=== PATIENT | male | born 1930 | race Two or more races ===

== ENCOUNTER 2016-07-26 15:24 | Outpatient (CLI) | payer MEDICARE, OTHER ==
[~2016-07-26 15:24] MED LIST: ALBU4TAB6 PO; ALBU8.5H2 IH; AMLO1CAP10 PO; AMOX-430 PO; CLON0.5T4 PO; DUTA0.5C15 PO; FLEC100T2 PO; FLUT12AE3 IH; FURO40TA5 PO; GABA-534 PO; MECL-102 PO; MONT10TA22 PO; PRED10TA PO; PRED20TA GT; PRED50TA PO; RIVA10TA PO; TAMS0.4C34 PO; TIOT18CA3 IH; TRAM50TA2 PO; VALS80TA2 PO
== END 2016-07-26 23:59 | disposition home or self-care (01) ==
LOC: CARD 15:24
PROVIDERS: ATTEND Internal Medicine Interventional Cardiology
DX: I82.402 Acute embolism and thrombosis of unspecified deep veins of left lower extremity (principal)
CPT/HCPCS: 93971-TC

== ENCOUNTER 2016-09-15 13:22 | Inpatient (IN) | payer MEDICARE, OTHER ==
[~2016-09-15] VITALS: Ht 177.8 cm; Wt 90.7 kg
[2016-09-15] MEDS ORDERED: IV NS 0.9% 0 ML ONE (13:54)
[2016-09-15] MEDS ORDERED: IV SET PRIMARY PUMP SET 1 EA INFUS.SET MC ONE (13:54)
[2016-09-15 13:56] LABS: BASOPHILS # (AUTO) 0.3 /CMM (0.0-0.2); BASOPHILS % (AUTO) 1.9 % (0.0-2.0); DIFF TOTAL % 100 %; EOSINOPHILS % (AUTO) 0.3 % (0.0-6.0); HEMATOCRIT 38 % (39-51); HEMOGLOBIN 12.6 g/dL (13.5-17.5); LYMPHOCYTES # (AUTO) 0.6 /CMM (0.8-4.8); LYMPHOCYTES % (AUTO) 4.1 % (20.0-44.0); MEAN CORPUSCULAR HEMOGLOBIN 29 PG (26.0-33.0); MEAN CORPUSCULAR HGB CONC 33 g/dl (31.0-36.0); MEAN CORPUSCULAR VOLUME 88 fL (80-96); MONOCYTES # (AUTO) 0.7 /CMM (0.1-1.30); MONOCYTES % (AUTO) 4.8 % (2.0-12.0); NEUTROPHILS # (AUTO) 12.6 /CMM (1.8-8.9); NEUTROPHILS % (AUTO) 88.9 % (43.0-81.0); PLATELET COUNT (AUTO) 345 /CMM (150-450); RED BLOOD CELL COUNT(AUTO) 4.32 MIL/uL (4.5-6.0); WHITE BLOOD COUNT (AUTO) 14.2 K/uL (4.3-11.0)
[2016-09-15 14:07] LABS: ANION GAP 10 (5-14); CALCIUM, SERUM 8.4 mg/dL (8.5-10.1); CARBON DIOXIDE 30 mmol/L (21-32); CHLORIDE 104 mmol/L (98-107); CREATININE 1.4 mg/dL (0.6-1.3); GLUCOSE 130 mg/dL (74-106); POTASSIUM 4.7 mmol/L (3.5-5.1); SODIUM SERUM 139 mmol/L (136-145); UREA NITROGEN, BLOOD 47 mg/dL (7-18)
[2016-09-15 14:10] LABS: INR 0.94 (0.87-1.13); PROTHROMBIN TIME 9.9 SECS (9.5-12.7)
[2016-09-15 14:27] LABS: TROPONIN I < 0.017 ng/mL (0.00-0.056)
[2016-09-15 14:29] LABS: ALANINE AMINOTRANSFERASE 26 U/L (12-78); ALBUMIN 3.5 g/dL (3.4-5.0); ASPARTATE AMINOTRANSFERASE 17 U/L (15-37); BILIRUBIN,DIRECT 0.1 mg/dL (0.0-0.2); BILIRUBIN,TOTAL 0.4 mg/dL (0.2-1.0); INDIRECT BILIRUBIN 0.3 mg/dL (0.0-1.1); TOTAL PROTEIN, SERUM 6.3 g/dL (6.4-8.2)
[2016-09-15] MEDS ORDERED: IPRATROPIUM NEB FS 0.5 MG/2.5 ML AMPUL.NEB NEB ONE (14:30)
[2016-09-15] MEDS ORDERED: ALBUTEROL FS 2.5 MG/0.5 ML VIAL.NEB NEB ONE (14:30)
[2016-09-15] MEDS ORDERED: IPRATROPIUM NEB FS 0.5 MG/2.5 ML AMPUL.NEB ONE (14:35)
[2016-09-15] MEDS ORDERED: ALBUTEROL FS 2.5 MG/3 ML VIAL.NEB ONE (14:35)
[2016-09-15] MEDS ORDERED: ALBUTEROL FS 2.5 MG/0.5 ML VIAL.NEB NEB PRN (16:00)
[2016-09-15] MEDS ORDERED: MAGNESIUM HYDROXIDE 30 ML UDC PO PRN (16:00)
[2016-09-15] MEDS ORDERED: IPRATROPIUM NEB FS 0.5 MG/2.5 ML AMPUL.NEB NEB PRN (16:00)
[2016-09-15] MEDS ORDERED: methylPREDNISolone SOD SUCC 125 MG/2ML VIAL IV ONE (16:00)
[2016-09-15] MEDS ORDERED: ACETAMINOPHEN 325 MG TABLET PO PRN (16:00)
[2016-09-15] MEDS ORDERED: MAG HYDROX/AL HYDROX/SIMETH 30 ML UDC PO PRN (16:00)
[2016-09-15] MEDS ORDERED: Z GUARD REMEDY 2 OZ OINT TP PRN (16:00)
[2016-09-15] MEDS ORDERED: HYDROCODONE/APAP 5/325MG 1 EACH TABLET PO PRN (16:00)
[2016-09-15] MEDS ORDERED: ONDANSETRON HCL/PF 4 MG/2 ML VIAL IVP PRN (16:00)
[2016-09-15] MEDS ORDERED: ZOLPIDEM TARTRATE 5 MG TABLET PO PRN (16:00)
[2016-09-15 16:25] LABS: ADD UA MICROSCOPIC NO; KETONES,URINE NEGATIVE (NEGATIVE); LEUKOCYTE ESTERASE ,URINE NEGATIVE (NEGATIVE); PH,URINE 5.5 (5.0-8.0)
[2016-09-15 16:30] VITALS: BP 122/69
[2016-09-15] MEDS ORDERED: ALBU18HF2 IH (16:39)
[2016-09-15] MEDS ORDERED: CYCL30DR EACHEYE (16:39)
[2016-09-15] MEDS ORDERED: POTA20TA83 PO (16:39)
[2016-09-15] MEDS ORDERED: PRED10TA PO (16:39)
[2016-09-15] MEDS ORDERED: Medication Not On Formulary EA (Cyclosporine (Restasis) 1 DROP) EACHEYE SCH (17:00)
[2016-09-15] MEDS ORDERED: clonazePAM 0.5 MG TABLET PO PRN (17:00)
[2016-09-15] MEDS ORDERED: ENOXAPARIN SODIUM 40 MG/0.4 ML DISP.SYRIN SQ SCH (17:00)
[2016-09-15] MEDS ORDERED: TRAMADOL HCL 50 MG TABLET PO PRN (17:00)
[2016-09-15] MEDS ORDERED: MECLIZINE HCL 25 MG TABLET PO PRN (17:00)
[2016-09-15] MEDS: FLECAINIDE ACETATE (100 MG) 100 MG TABLET PO SCH (17:56)
[2016-09-15] MEDS: POTASSIUM CHLORIDE 20 MEQ TAB.PRT.SR PO SCH (17:58)
[2016-09-15] MEDS: RIVAROXABAN 10 MG TABLET PO SCH (17:58)
[2016-09-15 19:00] VITALS: BP 134/66
[2016-09-15] MEDS ORDERED: ALBUTEROL FS 2.5 MG/3 ML VIAL.NEB NEB PRN (19:30)
[2016-09-15] MEDS: IPRATROPIUM NEB FS 0.5 MG/2.5 ML AMPUL.NEB NEB SCH (19:53)
[2016-09-15] MEDS: ALBUTEROL FS 2.5 MG/3 ML VIAL.NEB NEB SCH (19:53)
[2016-09-15] MEDS: AMLODIPINE BESYLATE 10 MG TABLET PO SCH (21:24)
[2016-09-15] MEDS: DUTASTERIDE (0.5 MG) 0.5 MG CAPSULE PO SCH (21:24)
[2016-09-15] MEDS: MONTELUKAST SODIUM (10MG) 10 MG TABLET PO SCH (21:24)
[2016-09-15] MEDS: TAMSULOSIN 0.4 MG CAP.SR.24H PO SCH (21:24)
[2016-09-15] MEDS: GABAPENTIN 300 MG CAPSULE PO SCH (21:24)
[2016-09-16] VITALS: BP 125/59
[2016-09-16] MEDS: IPRATROPIUM NEB FS 0.5 MG/2.5 ML AMPUL.NEB NEB SCH ×4 (01:22→19:55)
[2016-09-16] MEDS: ALBUTEROL FS 2.5 MG/3 ML VIAL.NEB NEB SCH ×4 (01:23→19:55)
[2016-09-16 04:00] VITALS: BP 136/75
[2016-09-16 07:49] LABS: BASOPHILS % (AUTO) 0.1 % (0.0-2.0); DIFF TOTAL % 100 %; HEMATOCRIT 42 % (39-51); HEMOGLOBIN 13.2 g/dL (13.5-17.5); LYMPHOCYTES # (AUTO) 0.6 /CMM (0.8-4.8); MEAN CORPUSCULAR HEMOGLOBIN 28 PG (26.0-33.0); MEAN CORPUSCULAR HGB CONC 32 g/dl (31.0-36.0); MEAN CORPUSCULAR VOLUME 90 fL (80-96); MONOCYTES # (AUTO) 0.3 /CMM (0.1-1.30); MONOCYTES % (AUTO) 2.5 % (2.0-12.0); NEUTROPHILS # (AUTO) 11.7 /CMM (1.8-8.9); NEUTROPHILS % (AUTO) 92.4 % (43.0-81.0); PLATELET COUNT (AUTO) 366 /CMM (150-450); RED BLOOD CELL COUNT(AUTO) 4.65 MIL/uL (4.5-6.0); WHITE BLOOD COUNT (AUTO) 12.7 K/uL (4.3-11.0)
[2016-09-16 08:00] VITALS: BP_SYST 135; BP_DIAS 60; BP_DIAS 80
[2016-09-16 08:08] LABS: ALBUMIN 3.5 g/dL (3.4-5.0); BILIRUBIN,TOTAL 0.3 mg/dL (0.2-1.0); CALCIUM, SERUM 8.8 mg/dL (8.5-10.1); CREATININE 1.3 mg/dL (0.6-1.3); PHOSPHORUS 4.1 mg/dL (2.5-4.9); POTASSIUM 4.9 mmol/L (3.5-5.1)
[2016-09-16] MEDS: FUROSEMIDE 40 MG TABLET PO SCH (08:14)
[2016-09-16] MEDS: POTASSIUM CHLORIDE 20 MEQ TAB.PRT.SR PO SCH ×2 (08:15→17:06)
[2016-09-16] MEDS: FLECAINIDE ACETATE (100 MG) 100 MG TABLET PO SCH ×2 (08:15→17:06)
[2016-09-16] MEDS: VALSARTAN 80 MG TABLET PO SCH (08:16)
[2016-09-16] MEDS: PANTOPRAZOLE 40 MG TABLET.DR PO SCH (08:17)
[2016-09-16] MEDS: methylPREDNISolone SOD SUCC 125 MG/2ML VIAL IV SCH ×2 (08:22→17:07)
[2016-09-16] MEDS: FLUTICASONE/SALMETEROL DISKUS IH SCH ×2 (08:29→17:06)
[2016-09-16] MEDS ORDERED: TIOTROPIUM BROMIDE 6 CAP/BOX CAP.W.DEV IH SCH (09:00)
[2016-09-16 12:00] VITALS: BP 136/53
[2016-09-16] MEDS ORDERED: FUROSEMIDE 40 MG/4 ML VIAL IV ONE (12:30)
[2016-09-16] MEDS: GUAIFENESIN 300 MG/15 ML UDC PO PRN ×2 (12:53→20:46)
[2016-09-16 16:00] VITALS: BP 128/57
[2016-09-16] MEDS: RIVAROXABAN 10 MG TABLET PO SCH (17:07)
[2016-09-16 20:00] VITALS: BP 135/63
[2016-09-16] MEDS: BENAZEPRIL HCL 20 MG TABLET PO SCH (21:48)
[2016-09-16] MEDS: DUTASTERIDE (0.5 MG) 0.5 MG CAPSULE PO SCH (21:48)
[2016-09-16] MEDS: AMLODIPINE BESYLATE 10 MG TABLET PO SCH (21:49)
[2016-09-16] MEDS: TAMSULOSIN 0.4 MG CAP.SR.24H PO SCH (21:49)
[2016-09-16] MEDS: MONTELUKAST SODIUM (10MG) 10 MG TABLET PO SCH (21:49)
[2016-09-16] MEDS: GABAPENTIN 300 MG CAPSULE PO SCH (21:49)
[2016-09-17] VITALS: BP 142/68
[2016-09-17] MEDS: ALBUTEROL FS 2.5 MG/3 ML VIAL.NEB NEB SCH ×4 (01:04→19:42)
[2016-09-17] MEDS: IPRATROPIUM NEB FS 0.5 MG/2.5 ML AMPUL.NEB NEB SCH ×4 (01:04→19:42)
[2016-09-17 04:00] VITALS: BP 140/68
[2016-09-17 06:48] VITALS: BP 125/53
[2016-09-17 07:37] LABS: CREATININE 1.5 mg/dL (0.6-1.3); PHOSPHORUS 4.5 mg/dL (2.5-4.9); POTASSIUM 4.2 mmol/L (3.5-5.1)
[2016-09-17 07:55] LABS: DIFF TOTAL % 100 %; HEMATOCRIT 46 % (39-51); HEMOGLOBIN 14.5 g/dL (13.5-17.5); LYMPHOCYTES # (AUTO) 0.7 /CMM (0.8-4.8); LYMPHOCYTES % (AUTO) 3.5 % (20.0-44.0); MEAN CORPUSCULAR HEMOGLOBIN 28 PG (26.0-33.0); MEAN CORPUSCULAR HGB CONC 32 g/dl (31.0-36.0); MEAN CORPUSCULAR VOLUME 90 fL (80-96); MONOCYTES # (AUTO) 0.5 /CMM (0.1-1.30); MONOCYTES % (AUTO) 2.3 % (2.0-12.0); NEUTROPHILS # (AUTO) 19.5 /CMM (1.8-8.9); NEUTROPHILS % (AUTO) 94.2 % (43.0-81.0); PLATELET COUNT (AUTO) 378 /CMM (150-450); WHITE BLOOD COUNT (AUTO) 20.7 K/uL (4.3-11.0)
[2016-09-17] MEDS: methylPREDNISolone SOD SUCC 125 MG/2ML VIAL IV SCH ×2 (09:08→16:04)
[2016-09-17] MEDS: POTASSIUM CHLORIDE 20 MEQ TAB.PRT.SR PO SCH ×2 (09:08→16:04)
[2016-09-17] MEDS: FLECAINIDE ACETATE (100 MG) 100 MG TABLET PO SCH ×2 (09:09→16:06)
[2016-09-17] MEDS: FUROSEMIDE 40 MG TABLET PO SCH (09:09)
[2016-09-17] MEDS: VALSARTAN 80 MG TABLET PO SCH (09:09)
[2016-09-17] MEDS: PANTOPRAZOLE 40 MG TABLET.DR PO SCH (09:10)
[2016-09-17] MEDS: GUAIFENESIN 300 MG/15 ML UDC PO PRN ×2 (09:15→22:50)
[2016-09-17] MEDS: FLUTICASONE/SALMETEROL DISKUS IH SCH ×2 (09:15→16:04)
[2016-09-17] MEDS ORDERED: LEVOFLOXACIN 750 MG /D5W 150ML 750 MG in PREMIX 1 EA IV SCH ×2 (11:00→12:00)
[2016-09-17] MEDS ORDERED: ALPRAZOLAM 0.25 MG TABLET PO PRN (11:00)
[2016-09-17] MEDS ORDERED: IV SET PRIMARY PUMP SET 1 EA INFUS.SET MC ONE (12:10)
[2016-09-17] MEDS: P-EPHED SUL/LORATADINE (24H) 1 TAB.SR.24H PO SCH (12:15)
[2016-09-17 12:30] LABS: ABG BASE EXCESS 4.2 mmol/L; ABG HCO3 29.5 mmol/L; ABG PCO2 46.5 mmHg (35.0-45.0); ABG PO2 55.2 mmHg (75.0-100.0); ABG TOTAL HEMOGLOBIN 14.1 G/dL (13.5-18.0); ALLEN TEST Pass; AaDO2 38.8 mmHg; O2Hb 85.8 % (94.0-97.0)
[2016-09-17] MEDS: RIVAROXABAN 10 MG TABLET PO SCH (16:05)
[2016-09-17 16:19] VITALS: BP 136/64
[2016-09-17 20:00] VITALS: BP 130/65
[2016-09-17] MEDS: BENAZEPRIL HCL 20 MG TABLET PO SCH (21:47)
[2016-09-17] MEDS: TAMSULOSIN 0.4 MG CAP.SR.24H PO SCH (21:48)
[2016-09-17] MEDS: MONTELUKAST SODIUM (10MG) 10 MG TABLET PO SCH (21:48)
[2016-09-17] MEDS: AMLODIPINE BESYLATE 10 MG TABLET PO SCH (21:48)
[2016-09-17] MEDS: GABAPENTIN 300 MG CAPSULE PO SCH (21:48)
[2016-09-17] MEDS: DUTASTERIDE (0.5 MG) 0.5 MG CAPSULE PO SCH (21:48)
[2016-09-18] MEDS: IPRATROPIUM NEB FS 0.5 MG/2.5 ML AMPUL.NEB NEB SCH ×3 (01:48→12:59)
[2016-09-18] MEDS: ALBUTEROL FS 2.5 MG/3 ML VIAL.NEB NEB SCH ×3 (01:48→12:59)
[2016-09-18 07:40] LABS: DIFF TOTAL % 100 %; HEMATOCRIT 41 % (39-51); LYMPHOCYTES # (AUTO) 0.6 /CMM (0.8-4.8); LYMPHOCYTES % (AUTO) 4.3 % (20.0-44.0); MEAN CORPUSCULAR HEMOGLOBIN 28 PG (26.0-33.0); MEAN CORPUSCULAR HGB CONC 32 g/dl (31.0-36.0); MEAN CORPUSCULAR VOLUME 89 fL (80-96); MONOCYTES # (AUTO) 0.3 /CMM (0.1-1.30); MONOCYTES % (AUTO) 2.3 % (2.0-12.0); NEUTROPHILS # (AUTO) 12.5 /CMM (1.8-8.9); NEUTROPHILS % (AUTO) 93.4 % (43.0-81.0); PLATELET COUNT (AUTO) 371 /CMM (150-450); RED BLOOD CELL COUNT(AUTO) 4.61 MIL/uL (4.5-6.0); WHITE BLOOD COUNT (AUTO) 13.4 K/uL (4.3-11.0)
[2016-09-18 07:44] LABS: CREATININE 1.6 mg/dL (0.6-1.3)
[2016-09-18 08:00] VITALS: BP 135/65
[2016-09-18] MEDS: FLECAINIDE ACETATE (100 MG) 100 MG TABLET PO SCH (08:27)
[2016-09-18] MEDS: methylPREDNISolone SOD SUCC 125 MG/2ML VIAL IV SCH (08:27)
[2016-09-18] MEDS: PANTOPRAZOLE 40 MG TABLET.DR PO SCH (08:27)
[2016-09-18] MEDS: FUROSEMIDE 40 MG TABLET PO SCH (08:27)
[2016-09-18] MEDS: POTASSIUM CHLORIDE 20 MEQ TAB.PRT.SR PO SCH (08:27)
[2016-09-18 08:28] VITALS: BP 100/67
[2016-09-18] MEDS: VALSARTAN 80 MG TABLET PO SCH (08:28)
[2016-09-18] MEDS: FLUTICASONE/SALMETEROL DISKUS IH SCH (08:32)
[2016-09-18 08:39] LABS: PHOSPHORUS 4.3 mg/dL (2.5-4.9)
[2016-09-18] MEDS ORDERED: PRED10TA PO (10:22)
[2016-09-18] MEDS ORDERED: PRED20TA PO (10:22)
[2016-09-18] MEDS ORDERED: GUAI-755 PO (10:22)
[2016-09-18] MEDS ORDERED: PRED20TA GT (10:22)
[2016-09-18] MEDS ORDERED: PRED50TA PO (10:22)
[2016-09-18] MEDS ORDERED: AMOX-430 PO (10:25)
[2016-09-18] MEDS: P-EPHED SUL/LORATADINE (24H) 1 TAB.SR.24H PO SCH (13:45)
== END 2016-09-18 14:30 | disposition home health service (06) | DRG 189 ==
LOC: ER 13:25 → TELE 15:54 → MED 09-17 08:54
PROVIDERS: ADMIT Family Medicine; ATTEND Family Medicine
DX: J96.01 Acute respiratory failure with hypoxia (principal); I50.23 Acute on chronic systolic (congestive) heart failure; N17.0 Acute kidney failure with tubular necrosis; J15.9 Unspecified bacterial pneumonia; J44.1 Chronic obstructive pulmonary disease with (acute) exacerbation; J45.901 Unspecified asthma with (acute) exacerbation; D68.59 Other primary thrombophilia; N28.9 Disorder of kidney and ureter, unspecified; N40.0 Benign prostatic hyperplasia without lower urinary tract symptoms; E78.5 Hyperlipidemia, unspecified; I25.10 Atherosclerotic heart disease of native coronary artery without angina pectoris; I48.91 Unspecified atrial fibrillation; I11.0 Hypertensive heart disease with heart failure; K21.9 Gastro-esophageal reflux disease without esophagitis; F41.9 Anxiety disorder, unspecified; F32.9 Major depressive disorder, single episode, unspecified; Z87.891 Personal history of nicotine dependence; Z99.81 Dependence on supplemental oxygen; Z79.01 Long term (current) use of anticoagulants; D72.825 Bandemia
CPT/HCPCS: 36415; 36600; 71010-TC; 80048-TC; 80053-TC; 80076-TC; 81000-TC; 83735-TC; 83880; 84100-TC; 84484-TC; 85025-TC; 85730-TC; 87040-TC; 87070-TC; 87081-TC; 87400; 93307-TC; 94640-TC; 94799-TC; 97001-TC; A4216; A4606; J1940; J1956; J2930; J7030; Z7610

== ENCOUNTER 2016-10-12 09:42 | Inpatient (IN) | payer MEDICARE, OTHER ==
[~2016-10-12] VITALS: Ht 177.8 cm; Wt 88.5 kg
[~2016-10-12 09:42] MED LIST changes: +ALBU18HF2 IH; -ALBU8.5H2 IH; +CYCL30DR EACHEYE; +GUAI-755 PO; +PRED20TA PO
--- NOTE | 2016-10-12 10:00 | NUR ---
AAOX3, CAME TO ER C/O ABRASION TO SCALP AND L HAND S/P GLF 10 MIN BRICK HANDLER BURNING SENSATION TO R KNEE SINCE THIS MORNING. -KO. SKIN IS WARM AND DRY. RESP IS EVEN AND UNLABORED. NAD NOTED. DR JOHNSON AT BS FOR DARLINE.
--- NOTE | 2016-10-12 10:06 | NUR ---
BRICK PITCHER AT DRAWING BLOOD.
--- NOTE | 2016-10-12 10:06 | NUR ---
EKG IN PROGRESS AT BS
[2016-10-12 10:15] LABS: HEMATOCRIT 36 % (39-51); HEMOGLOBIN 11.5 g/dL (13.5-17.5); LYMPHOCYTES # (AUTO) 0.3 /CMM (0.8-4.8); LYMPHOCYTES % (AUTO) 3.3 % (20.0-44.0); MEAN CORPUSCULAR HEMOGLOBIN 28 PG (26.0-33.0); MEAN CORPUSCULAR HGB CONC 32 g/dl (31.0-36.0); MEAN CORPUSCULAR VOLUME 89 fL (80-96); MONOCYTES # (AUTO) 0.4 /CMM (0.1-1.30); MONOCYTES % (AUTO) 4.3 % (2.0-12.0); NEUTROPHILS # (AUTO) 9.2 /CMM (1.8-8.9); NEUTROPHILS % (AUTO) 92.4 % (43.0-81.0); PLATELET COUNT (AUTO) 348 /CMM (150-450); RDW COEFFICIENT OF VARIATION 16.1 (11.5-15.0); RED BLOOD CELL COUNT(AUTO) 4.07 MIL/uL (4.5-6.0); WHITE BLOOD COUNT (AUTO) 9.9 K/uL (4.3-11.0)
--- NOTE | 2016-10-12 10:21 | NUR ---
PATIENT TRANSPORTED FOR CT HEAD VIA GURNEY, PATIENT APPEARS STABLE AT THIS TIME.
[2016-10-12] MEDS ORDERED: TDAP [DIPH/PERTUSSIS/TET] 0.5 ML VIAL IM ONE ×2 (10:30→10:51)
[2016-10-12 10:31] LABS: ALANINE AMINOTRANSFERASE 28 U/L (12-78); ALBUMIN 3.1 g/dL (3.4-5.0); ALKALINE PHOSPHATASE 76 U/L (46-116); ASPARTATE AMINOTRANSFERASE 16 U/L (15-37); BILIRUBIN,DIRECT 0.1 mg/dL (0.0-0.2); BILIRUBIN,TOTAL 0.3 mg/dL (0.2-1.0); CALCIUM, SERUM 8.4 mg/dL (8.5-10.1); CARBON DIOXIDE 28 mmol/L (21-32); CHLORIDE 105 mmol/L (98-107); CREATININE 1.7 mg/dL (0.6-1.3); GLUCOSE 209 mg/dL (74-106); POTASSIUM 5.7 mmol/L (3.5-5.1); SODIUM SERUM 141 mmol/L (136-145); TOTAL PROTEIN, SERUM 5.9 g/dL (6.4-8.2); UREA NITROGEN, BLOOD 29 mg/dL (7-18)
[2016-10-12 10:34] LABS: TROPONIN I < 0.017 ng/mL (0.00-0.056)
[2016-10-12 10:36] LABS: PROTHROMBIN TIME 10.7 SECS (9.5-12.7)
--- NOTE | 2016-10-12 11:37 | NUR ---
PAGED MARKETING GRAPHICS SPECIALIST PANEL CHAPIS DELACRUZ.
--- NOTE | 2016-10-12 11:59 | NUR ---
REPORT GIVEN TO ROSEY MAKI FOR YOUSUF [phone]
[2016-10-12 12:30] VITALS: BP 126/63
--- NOTE | 2016-10-12 12:30 | NUR ---
MS RN NOTES ADMITTED THIS PATIENT FROM ER VIA [facility], DX: RT KNEE FRACTURE, DR. CHAPIS DELACRUZ, AAO X 3 TONGAN SPEAKING, ON RA, NOT IN ANY DISTRESS,C/O 2/10 SHARP PAIN ON MOVEMENT, RT KNEE. PATIENT HAD GLF AT HOME. UNABLE TO AMBULATE AT THIS TIME. LFA G18 FLUSHES WELL, SITE CLEAR. UNIT ORIENTATION DONE AND USE OF CALL LIGHT. BED LOW LOCKED, SR UP X 2, PHOTOS OF SKIN ISSUES TAKEN AND PLACED IN CHART. WILL CONT TO MONITOR.
--- NOTE | 2016-10-12 13:18 | NUR ---
MS RN NOTES DR CHAPIS DELACRUZ NOTIFIED OF ADMISSION.
[2016-10-12] MEDS ORDERED: Z GUARD REMEDY 2 OZ OINT TP PRN (14:30)
[2016-10-12] MEDS ORDERED: SODIUM POLYSTYRENE SULFONATE 15 G/60 ML BOTTLE PO ONE (14:30)
[2016-10-12] MEDS ORDERED: clonazePAM 0.5 MG TABLET PO PRN (14:30)
[2016-10-12] MEDS ORDERED: MORPHINE SULFATE INJ 2 MG/ML DISP.SYRIN IV PRN (14:30)
[2016-10-12] MEDS ORDERED: ALBUTEROL SULFATE 8 GM HFA.AER.AD IH PRN (14:30)
[2016-10-12] MEDS ORDERED: ACETAMINOPHEN 325 MG TABLET PO PRN (14:30)
[2016-10-12] MEDS ORDERED: ONDANSETRON HCL/PF 4 MG/2 ML VIAL IVP PRN (14:30)
[2016-10-12] MEDS ORDERED: ALBUTEROL FS 2.5 MG/3 ML VIAL.NEB NEB PRN (15:00)
[2016-10-12 16:00] VITALS: BP 130/59
[2016-10-12 16:51] VITALS: BP 130/59
[2016-10-12] MEDS: RIVAROXABAN 10 MG TABLET PO SCH (17:01)
[2016-10-12] MEDS: FLUTICASONE/SALMETEROL DISKUS IH SCH (17:02)
[2016-10-12] MEDS: FLECAINIDE ACETATE (100 MG) 100 MG TABLET PO SCH (17:02)
[2016-10-12 18:00] VITALS: BP 130/59
--- NOTE | 2016-10-12 18:36 | NUR ---
MS RN NOTE: PATIENT RESTING IN BED, NO ACUTE DISTRESS NOTED. BREATHING EVEN AND UNLABORED, NO SOB NOTED. HL TO LFA IN PLACE. BED LOCKED AND IN LOWEST POSITION, CALL LIGHT IN REACH, ALL NEEDS MET. WILL ENDORSE TO NYLON OPERATOR NURSE TO CONTINUE WITH PLAN OF CARE.
--- NOTE | 2016-10-12 19:00 | NUR ---
MS RN OPENING NOTES RECEIVED PATIENT IN BED IN STABLE CONDITION, NO S/S OF DISTRESS, IV SITE INTACT WITH S/S OF INFILTRATION. NO S/S OF DISTRESS NO SOB, NO CHEST PAIN. NO COMPLAINS OF PAIN, SAFE FREE ENVIRONMENT PROVIDED FREE OF CLUTTERS, WILL CONTINUE TO MONITOR, ON LOW BED TO ENSURE SAFETY, CALL LIGHT WITHIN REACH.
[2016-10-12 20:00] VITALS: BP 130/54
[2016-10-12] MEDS: GABAPENTIN 300 MG CAPSULE PO SCH (21:05)
[2016-10-12] MEDS: DUTASTERIDE (0.5 MG) 0.5 MG CAPSULE PO SCH (21:05)
[2016-10-12] MEDS: TAMSULOSIN 0.4 MG CAP.SR.24H PO SCH (21:06)
[2016-10-12] MEDS: MONTELUKAST SODIUM (10MG) 10 MG TABLET PO SCH (21:08)
[2016-10-12] MEDS: IPRATROPIUM NEB FS 0.5 MG/2.5 ML AMPUL.NEB NEB SCH (21:36)
[2016-10-13] MEDS: IPRATROPIUM NEB FS 0.5 MG/2.5 ML AMPUL.NEB NEB SCH ×6 (01:30→23:53)
[2016-10-13 06:37] LABS: EOSINOPHILS # (AUTO) 0.1 /CMM (0.0-0.7); EOSINOPHILS % (AUTO) 2.2 % (0.0-6.0); HEMATOCRIT 35 % (39-51); HEMOGLOBIN 11.4 g/dL (13.5-17.5); LYMPHOCYTES # (AUTO) 0.9 /CMM (0.8-4.8); LYMPHOCYTES % (AUTO) 14.4 % (20.0-44.0); MEAN CORPUSCULAR HEMOGLOBIN 29 PG (26.0-33.0); MEAN CORPUSCULAR HGB CONC 32 g/dl (31.0-36.0); MEAN CORPUSCULAR VOLUME 89 fL (80-96); MONOCYTES # (AUTO) 0.5 /CMM (0.1-1.30); MONOCYTES % (AUTO) 8.1 % (2.0-12.0); NEUTROPHILS # (AUTO) 4.7 /CMM (1.8-8.9); NEUTROPHILS % (AUTO) 75.3 % (43.0-81.0); PLATELET COUNT (AUTO) 314 /CMM (150-450); RDW COEFFICIENT OF VARIATION 16.5 (11.5-15.0); RED BLOOD CELL COUNT(AUTO) 3.96 MIL/uL (4.5-6.0); WHITE BLOOD COUNT (AUTO) 6.2 K/uL (4.3-11.0)
--- NOTE | 2016-10-13 06:50 | NUR ---
MS RN CLOSING NOTES PATIENT COMFORTABLY IN BED ASLEEP AND EASILY AWAKEN, HEAD OF BED ELEVATED FOR BETTER LUNG EXPANSION AND GOOD CIRCULATION. DUE MEDS WAS GIVEN. ON 2LPM VIA NC 02 SAT SP02 98%. ALERT AND VERBALLY RESPONSIVE X 3 DENIES PAIN OR DISTRESS, RESPONDS APPROPRIATELY TO VERBAL STIMULI, RESPIRATIONS EVEN UNLABORED BREATH SOUNDS. VS STABLE, APICAL PULSE REGULAR; TX ORDERED, GOOD SKIN CARE PROVIDED. IV SITE INTACT WITH NO S/S OF INFILTRATION NOTED. OFFLOAD AT ALL TIMES. PATIENT IN STABLE CONDITION WITH NO SOB NO S/S OF DISTRESS NO NAUSEA AND VOMITING NO HEADACHE NO PAIN, NO COMPLAIN OF CHEST PAIN SAFETY ENVIRONMENT PROVIDED. FREE OF CLUTTERS, NEEDS ATTENDED AND ANTICIPATED, NURSING CARE RENDERED, KEPT CLEAN AND DRY AND COMFORTABLE. ALL DUE MEDS WAS GIVEN. ASSISTED REPOSITION Q2H FOR COMFORT AND SKIN MGT. CALL LIGHT IN REACH, BED LOWERED AND LOCKED, SR X2 FOR SAFETY AND WILL ENDORSE CONTINUE PLAN OF CARE TO THE NEXT SHIFT
[2016-10-13 07:02] LABS: THYROID STIMULATING HORMONE 1.315 uIU/mL (0.358-3.74)
--- NOTE | 2016-10-13 07:10 | NUR ---
MS RN NOTE: RECEIVED PATIENT WHILE RESTING IN BED, A/OX 3. PATIENT BREATHING EVEN AND UNLABORED ON 2L O2 VIA NC. NO SOB, NO DISTRESS/DISCOMFORT AT THE MOMENT. PATIENT COMFORTABLE, ALL NEEDS ATTENDED TO, SAFETY MEASURES IN PLACE, WILL CONTINUE TO MONITOR.
[2016-10-13 07:13] LABS: ALBUMIN 2.8 g/dL (3.4-5.0); BILIRUBIN,TOTAL 0.5 mg/dL (0.2-1.0); CALCIUM, SERUM 8.2 mg/dL (8.5-10.1); CREATININE 1.2 mg/dL (0.6-1.3); PHOSPHORUS 2.7 mg/dL (2.5-4.9); POTASSIUM 4.1 mmol/L (3.5-5.1); TOTAL PROTEIN, SERUM 5.6 g/dL (6.4-8.2)
[2016-10-13 08:00] VITALS: BP 111/52
[2016-10-13] MEDS: PANTOPRAZOLE 40 MG TABLET.DR PO SCH (08:13)
[2016-10-13] MEDS: VALSARTAN 80 MG TABLET PO SCH (08:14)
[2016-10-13] MEDS: FLECAINIDE ACETATE (100 MG) 100 MG TABLET PO SCH ×2 (08:14→20:40)
[2016-10-13] MEDS: FLUTICASONE/SALMETEROL DISKUS IH SCH ×2 (08:14→20:40)
--- NOTE | 2016-10-13 08:15 | NUR ---
PATIENT REFUSED LASIX AFTER OPENING PACKAGE. DESPITE EXPLANATION OF RISKS, PATIENT STILL REFUSED. MEDICATION WASTED IN PYXIS, WILL CONTINUE TO MONITOR.
[2016-10-13] MEDS: FUROSEMIDE 40 MG TABLET PO SCH (08:19)
[2016-10-13] MEDS ORDERED: predniSONE 10 MG TABLET PO SCH (09:00)
[2016-10-13] MEDS ORDERED: TIOTROPIUM BROMIDE 6 CAP/BOX CAP.W.DEV IH SCH (09:00)
--- NOTE | 2016-10-13 09:30 | NUR ---
MS RN NOTE: ORTHO GROUP NOTIFIED FOR CONSULT. PER AMADOR BELLO, WILL BE IN LATER TO SEE PATIENT, NO NEED TO KEEP PATIENT NPO.
--- NOTE | 2016-10-13 10:30 | NUR ---
MS RN NOTE: ORTHO AMADOR BELLO, CONSULTED WITH PATIENT. NOW STATING SURGERY WILL BE REQUIRED. PATIENT HAD NOT EATEN ANY BREAKFAST YET. PATIENT NOW FULLY PLACED NPO. WILL CONTINUE TO [facility].
--- NOTE | 2016-10-13 10:30 | NUR ---
MS RN NOTE: DVT PUMP APPLIED TO PATIENT'S LEFT LEG. DVT PUMP NOT APPLIED TO RIGHT LEG D/T PAIN FROM KNEE FX. WILL CONTINUE TO MONITOR.
--- NOTE | 2016-10-13 12:15 | NUR ---
MS RN NOTE: PATIENT EXPLAINED THE NEED FOR ORTHOPEDIC SURGERY. PATIENT TO HAVE RIGHT QUADRICEP TENDON REPAIR WITH DR. CLINTON. PROCEDURE EXPLAINED TO PATIENT, AGREES TO SURGERY. PATIENT SIGNED PROCEDURE CONSENT, CONSENT FOR BLOOD, AND CONSENT FOR ANESTHESIA. SURGICAL PACKET COMPLETED AND PLACED IN CHART. SURGERY SCHEDULED FOR 1630. WILL CONTINUE TO MONITOR.
[2016-10-13] MEDS ORDERED: IPRATROPIUM NEB FS 0.5 MG/2.5 ML AMPUL.NEB NEB SCH (13:30)
[2016-10-13] MEDS: methylPREDNISolone SOD SUCC 125 MG/2ML VIAL IV SCH ×2 (13:36→21:36)
[2016-10-13 14:38] LABS: ABG BASE EXCESS 6.5 mmol/L; ABG OXYGEN SATURATION 94.3 % (92.0-98.5); ABG PCO2 43.3 mmHg (35.0-45.0); ABG PO2 73.5 mmHg (75.0-100.0); ABG TOTAL HEMOGLOBIN 11.2 G/dL (13.5-18.0); COHb 0.8 % (0.5-1.5); O2Hb 92.6 % (94.0-97.0); SITE, ABG Left Radial; VENT MODE, BG Nasal Cannula
[2016-10-13 15:34] LABS: APPEARANCE,URINE CLEAR (CLEAR); BILIRUBIN,URINE NEGATIVE (NEGATIVE); BLOOD, URINE NEGATIVE Ery/uL (NEGATIVE); COLOR,URINE YELLOW (YELLOW); KETONES,URINE NEGATIVE (NEGATIVE); LEUKOCYTE ESTERASE ,URINE NEGATIVE (NEGATIVE); NITRITE, URINE NEGATIVE (NEGATIVE); PROTEIN,URINE NEGATIVE (NEGATIVE); UGLUCOSE NEGATIVE (NEGATIVE); UROBILINOGEN,URINE 0.2 EU/dL (0.2)
[2016-10-13 16:00] VITALS: BP 127/57
--- NOTE | 2016-10-13 16:02 | NUR ---
MS RN NOTE: NEW IV STARTED ON RIGHT FOREARM, 18 GAUGE, HEPLOCK. IV ON LEFT FOREARM STILL INTACT, BUT SLIGHTLY BLOODY. WILL CONTINUE TO MONITOR.
[2016-10-13] MEDS: ALBUTEROL FS 2.5 MG/3 ML VIAL.NEB NEB SCH ×3 (16:04→23:54)
[2016-10-13] MEDS ORDERED: BACITRACIN 50000 UNITS/VIAL ONE (16:06)
--- NOTE | 2016-10-13 16:08 | NUR ---
MS RN NOTE: PATIENT HAS 2 RINGS, 1 ON EACH HAND. BOTH RINGS TAPED ONTO FINGER PRIOR TO SURGERY. REFUSING TO TAKE OFF, WILL CONTINUE TO MONITOR.
--- NOTE | 2016-10-13 16:30 | NUR ---
MS RN NOTE: PATIENT TRANSPORTED TO OR FOR SURGERY VIA BED. REMAINS IN STABLE CONDITION, WILL CONTINUE TO MONITOR PATIENT UPON RETURN TO FLOOR.
[2016-10-13] MEDS ORDERED: ALBUTEROL HALF STRENGTH 1.25 MG/3 ML VIAL.NEB ONE ×2 (17:10→18:45)
[2016-10-13] MEDS: RIVAROXABAN 10 MG TABLET PO SCH (19:00)
--- NOTE | 2016-10-13 19:00 | NUR ---
MS RN NOTE: PATIENT IS STILL IN OR. RECEIVED REPORT FROM OR. PATIENT OUT OF SURGERY, VITALS STABLE, BREATHING ON 2-3L O2, SATURATING AT 97%. PATIENT TO BE BROUGHT BACK TO ROOM ONCE STABLE. PATIENT HAS IMMOBILIZER ON RIGHT LEG. WILL ENDORSE TO LIQUOR ESTABLISHMENT MANAGER FOR [employer].
[2016-10-13] MEDS ORDERED: BUPIVACAINE MPF 0.5% W/EPI INJ 30 ML VIAL ONE (19:03)
[2016-10-13] MEDS ORDERED: ANESTHESIA TRAY IN PYXIS 1 EA TRAY MC ONE (19:03)
--- NOTE | 2016-10-13 20:00 | NUR ---
MS RN NOTE: PATIENT RESTING IN BED, NO ACUTE DISTRESS NOTED. BREATHING EVEN AND UNLABORED, NO SOB NOTED. IV TO RFA IN PLACE. PATIENT BACK ON FLOOR FROM SURGERY, IN STABLE CONDITION, VITAL SIGNS STABLE. BED LOCKED AND IN LOWEST POSITION, CALL LIGHT IN REACH. WILL CONTINUE TO MONITOR.
[2016-10-13 20:16] VITALS: BP 131/58
[2016-10-13] MEDS: GABAPENTIN 300 MG CAPSULE PO SCH (21:36)
[2016-10-13] MEDS: DUTASTERIDE (0.5 MG) 0.5 MG CAPSULE PO SCH (21:36)
[2016-10-13] MEDS: MONTELUKAST SODIUM (10MG) 10 MG TABLET PO SCH (21:36)
[2016-10-13] MEDS: TAMSULOSIN 0.4 MG CAP.SR.24H PO SCH (21:36)
--- NOTE | 2016-10-13 23:45 | NUR ---
MS RN NOTE: PATIENT COMPLAINS OF PAIN 9/10 TO RIGHT KNEE, MORPHINE 2MG IV GIVEN PER MD ORDER. WILL CONTINUE TO MONITOR.
[2016-10-14] MEDS ORDERED: SECONDARY IV SET 1 EA INFUS.SET MC ONE (01:25)
[2016-10-14] MEDS: ANCEF 1 GM/50 ML D5W IV SCH ×4 (01:34→09:07)
[2016-10-14] MEDS ORDERED: IV SET PRIMARY PUMP SET 1 EA INFUS.SET MC ONE (01:36)
[2016-10-14] MEDS: ALBUTEROL FS 2.5 MG/3 ML VIAL.NEB NEB SCH ×6 (04:02→22:51)
[2016-10-14] MEDS: methylPREDNISolone SOD SUCC 125 MG/2ML VIAL IV SCH ×2 (04:48→13:02)
--- NOTE | 2016-10-14 06:05 | NUR ---
MS RN NOTE: PATIENT RESTING IN BED, NO ACUTE DISTRESS NOTED. BREATHING EVEN AND UNLABORED, NO SOB NOTED. IV TO RFA IN PLACE. DRESSING TO RIGHT KNEE CLEAN AND IN PLACE WITH IMMOBILIZER. BED LOCKED AND IN LOWEST POSITION, CALL LIGHT IN REACH. WILL ENDORSE TO DAY NURSE TO CONTINUE WITH PLAN OF CARE.
[2016-10-14] MEDS: PANTOPRAZOLE 40 MG TABLET.DR PO SCH (06:41)
[2016-10-14 06:59] LABS: HEMATOCRIT 35 % (39-51); HEMOGLOBIN 11.2 g/dL (13.5-17.5); LYMPHOCYTES # (AUTO) 0.3 /CMM (0.8-4.8); LYMPHOCYTES % (AUTO) 2.3 % (20.0-44.0); MEAN CORPUSCULAR HEMOGLOBIN 28 PG (26.0-33.0); MEAN CORPUSCULAR HGB CONC 32 g/dl (31.0-36.0); MEAN CORPUSCULAR VOLUME 89 fL (80-96); MONOCYTES # (AUTO) 0.3 /CMM (0.1-1.30); MONOCYTES % (AUTO) 2.9 % (2.0-12.0); NEUTROPHILS # (AUTO) 10.9 /CMM (1.8-8.9); NEUTROPHILS % (AUTO) 94.8 % (43.0-81.0); PLATELET COUNT (AUTO) 327 /CMM (150-450); RDW COEFFICIENT OF VARIATION 16.3 (11.5-15.0); RED BLOOD CELL COUNT(AUTO) 3.94 MIL/uL (4.5-6.0); WHITE BLOOD COUNT (AUTO) 11.5 K/uL (4.3-11.0)
[2016-10-14] MEDS: IPRATROPIUM NEB FS 0.5 MG/2.5 ML AMPUL.NEB NEB SCH ×4 (07:11→22:51)
[2016-10-14 07:15] LABS: CALCIUM, SERUM 7.9 mg/dL (8.5-10.1); CREATININE 1.3 mg/dL (0.6-1.3); MAGNESIUM 2.1 mg/dL (1.8-2.4); POTASSIUM 4.4 mmol/L (3.5-5.1)
--- NOTE | 2016-10-14 07:38 | NUR ---
MS/RN Patient received Patient received from mold shifter. No needs, denies pain. Call light within reach, will continue to monitor.
[2016-10-14 08:00] VITALS: BP 138/60
[2016-10-14] MEDS: FLUTICASONE/SALMETEROL DISKUS IH SCH ×2 (08:31→17:10)
[2016-10-14] MEDS: FLECAINIDE ACETATE (100 MG) 100 MG TABLET PO SCH ×2 (08:31→17:08)
[2016-10-14] MEDS: FUROSEMIDE 40 MG TABLET PO SCH (08:31)
[2016-10-14] MEDS: VALSARTAN 80 MG TABLET PO SCH (08:31)
[2016-10-14] MEDS: GUAIFENESIN/CODEINE 10 ML UDC PO PRN (09:07)
--- NOTE | 2016-10-14 09:12 | NUR ---
MS/RN Ancef Final dose of ancef hung as ordered.
--- NOTE | 2016-10-14 11:45 | NUR ---
MS/RN S/B PT Seen by PT - moderate assist in hallway using a walker, 80ft. Please do not allow patient to use crutches as unsafe. PT recommending patient be discharged to short term rehab center, or if home will require 24hr disability liaison officer and home health, FWW.
[2016-10-14 12:42] LABS: IMMUNOGLOBULIN A, SERUM 32 mg/dL (61-437); IMMUNOGLOBULIN G, SERUM 479 mg/dL (700-1600); IMMUNOGLOBULIN M, SERUM 54 mg/dL (15-143)
[2016-10-14 16:11] VITALS: BP 119/52
--- NOTE | 2016-10-14 17:00 | NUR ---
MS/transformer builder Xarelto 15mg administered as ordered.
[2016-10-14] MEDS: RIVAROXABAN 10 MG TABLET PO SCH (17:10)
--- NOTE | 2016-10-14 18:11 | NUR ---
MS/RN End note Patient remains without any complaints of pain. Right leg remains in immobilizer at all times. All needs attended, will endorse to extracorporeal circulation specialist.
--- NOTE | 2016-10-14 19:30 | NUR ---
MS/RN NOTES RECEIVED PT. LYING IN BED RESTING. PT. IS EASILY AROUSABLE TO NAME. PT. IS AWAKE, ALERT AND ORIENTED X3. BREATHING EVEN AND UNLABORED ON 2LPM O2 VIA NC. NO SOB, RESPIRATORY DISTRESS OR COMPLAINTS OF PAIN NOTED AT THIS TIME. PT. WITH RIGHT FOREARM 18 GAUGE IV SALINE LOCK PRESENT, PATENT AND INTACT. PT. WITH RIGHT LEG IMMOBLIZER PRESENT, INTACT AND IN PLACE. BED IN LOWEST POSITION, CALL LIGHT WITHIN REACH, WILL CONTINUE TO MONITOR.
[2016-10-14 20:12] VITALS: BP 132/57
[2016-10-14] MEDS: MONTELUKAST SODIUM (10MG) 10 MG TABLET PO SCH (21:33)
[2016-10-14] MEDS: DUTASTERIDE (0.5 MG) 0.5 MG CAPSULE PO SCH (21:33)
[2016-10-14] MEDS: TAMSULOSIN 0.4 MG CAP.SR.24H PO SCH (21:33)
[2016-10-14] MEDS: GABAPENTIN 300 MG CAPSULE PO SCH (21:33)
--- NOTE | 2016-10-15 02:05 | NUR ---
MS/RN NOTES PT. LYING IN BED RESTING. BREATHING EVEN AND UNLABORED ON 2LPM O2 VIA NC. NO SOB, RESPIRATORY DISTRESS OR S/S OF PAIN NOTED AT THIS TIME. PT. APPEARS COMFORTABLE AT THE MOMENT. BED IN LOWEST POSITION, CALL LIGHT WITHIN REACH, WILL CONTINUE TO MONITOR.
[2016-10-15] MEDS: ALBUTEROL FS 2.5 MG/3 ML VIAL.NEB NEB SCH ×5 (03:24→20:42)
--- NOTE | 2016-10-15 06:31 | NUR ---
MS/RN NOTES PT. LYING IN BED RESTING. BREATHING EVEN AND UNLABORED ON 2LPM O2 VIA NC. NO SOB, RESPIRATORY DISTRESS OR COMPLAINTS OF PAIN NOTED AT THIS TIME. PT. WITH RIGHT FOREARM 18 GAUGE IV SALINE LOCK PRESENT, PATENT AND INTACT. PT. REMAINS WITH RIGHT LEG IMMOBILIZER PRESENT, INTACT AND IN PLACE. RIGHT LOWER EXTREMITY ELEVATED ON PILLOWS. ALL PT. NEEDS MET. NO SOB OR RESPIRATORY DISTRESS NOTED THROUGHOUT SHIFT. BED IN LOWEST POSITION, CALL LIGHT WITHIN REACH, WILL ENDORSE TO DAYSHIFT NURSE FOR CONTINUITY OF CARE.
[2016-10-15 06:34] LABS: HEMATOCRIT 31 % (39-51); LYMPHOCYTES # (AUTO) 0.4 /CMM (0.8-4.8); LYMPHOCYTES % (AUTO) 2.7 % (20.0-44.0); MEAN CORPUSCULAR HEMOGLOBIN 29 PG (26.0-33.0); MEAN CORPUSCULAR HGB CONC 32 g/dl (31.0-36.0); MEAN CORPUSCULAR VOLUME 89 fL (80-96); MONOCYTES # (AUTO) 0.6 /CMM (0.1-1.30); MONOCYTES % (AUTO) 4.4 % (2.0-12.0); NEUTROPHILS # (AUTO) 12.8 /CMM (1.8-8.9); NEUTROPHILS % (AUTO) 92.9 % (43.0-81.0); PLATELET COUNT (AUTO) 323 /CMM (150-450); RDW COEFFICIENT OF VARIATION 16.4 (11.5-15.0); RED BLOOD CELL COUNT(AUTO) 3.48 MIL/uL (4.5-6.0); WHITE BLOOD COUNT (AUTO) 13.8 K/uL (4.3-11.0)
[2016-10-15 07:03] LABS: CALCIUM, SERUM 7.9 mg/dL (8.5-10.1); CREATININE 1.8 mg/dL (0.6-1.3); MAGNESIUM 2.3 mg/dL (1.8-2.4); PHOSPHORUS 4.2 mg/dL (2.5-4.9); POTASSIUM 3.9 mmol/L (3.5-5.1)
--- NOTE | 2016-10-15 07:30 | NUR ---
MS/RN AM NOTES PT. IN BED,AAO X 4, VENEZUELAN SPEAKING, SMALL MARSHALLESE, S/P R QUADRICEPS TENDON REPAIR 10/13/[address] CLINTON, DRESSING AND IMMOBILIZER IN PLACE. ELEVATED ON PILLOW. ON O2 AT 2LPM NC, BREATHING EVEN AND UNLABORED, NO SOB, RESPIRATORY DISTRESS OR COMPLAINTS OF PAIN NOTED AT THIS TIME. RIGHT FOREARM 18 GAUGE IV SALINE LOCK PRESENT, FLUSHES WELL SITE CLEAR, BED IN LOWEST POSITION, CALL LIGHT WITHIN REACH, WILL CONT TO MONITOR.
[2016-10-15 08:00] VITALS: BP 130/68
[2016-10-15] MEDS: FUROSEMIDE 40 MG TABLET PO SCH (08:44)
[2016-10-15] MEDS: FLUTICASONE/SALMETEROL DISKUS IH SCH ×2 (08:45→17:05)
[2016-10-15] MEDS: VALSARTAN 80 MG TABLET PO SCH (08:45)
[2016-10-15] MEDS: FLECAINIDE ACETATE (100 MG) 100 MG TABLET PO SCH ×2 (08:46→17:06)
[2016-10-15] MEDS: predniSONE 20 MG TABLET PO SCH (08:46)
[2016-10-15] MEDS: PANTOPRAZOLE 40 MG TABLET.DR PO SCH (08:46)
--- NOTE | 2016-10-15 09:30 | NUR ---
MS RN NOTE ADMINISTERED DUE MEDS.
[2016-10-15] MEDS ORDERED: IV NS 0.9% 1,000 ML IV PRN (09:46)
[2016-10-15] MEDS: IPRATROPIUM NEB FS 0.5 MG/2.5 ML AMPUL.NEB NEB SCH ×4 (10:53→20:42)
[2016-10-15 16:00] VITALS: BP 128/81
[2016-10-15] MEDS: RIVAROXABAN 10 MG TABLET PO SCH (17:07)
[2016-10-15 18:00] VITALS: BP 128/81
--- NOTE | 2016-10-15 18:39 | NUR ---
MS RN NOTE: PATIENT RESTING IN BED, NO ACUTE DISTRESS NOTED. BREATHING EVEN AND UNLABORED, NO SOB NOTED. HL TO LFA IN PLACE. BED LOCKED AND IN LOWEST POSITION, CALL LIGHT IN REACH, ALL NEEDS MET. WILL ENDORSE TO GREY ROLL MAN NURSE TO CONTINUE WITH PLAN OF CARE.
--- NOTE | 2016-10-15 19:25 | NUR ---
MS/RN NOTES RECEIVED PT. LYING IN BED AWAKE, ALERT AND ORIENTED X3. BREATHING EVEN AND UNLABORED ON 2LPM O2 VIA NC. NO SOB, RESPIRATORY DISTRESS OR COMPLAINTS OF PAIN NOTED AT THIS TIME. PT. WITH RIGHT FOREARM 18 GAUGE IV SALINE LOCK PRESENT, PATENT AND INTACT. PT. WITH RIGHT LEG SURGICAL DRESSING AND IMMOBILIZER PRESENT, INTACT AND IN PLACE. DRESSING IS CLEAN, DRY AND INTACT. NO DRAINAGE OR BLEEDING NOTED. PT. RIGHT LOWER EXTREMITY ELEVATED ON PILLOWS. BED IN LOWEST POSITION, CALL LIGHT WITHIN REACH, WILL CONTINUE TO MONITOR.
[2016-10-15 20:07] VITALS: BP 127/53
[2016-10-15] MEDS: GABAPENTIN 300 MG CAPSULE PO SCH (21:43)
[2016-10-15] MEDS: DUTASTERIDE (0.5 MG) 0.5 MG CAPSULE PO SCH (21:43)
[2016-10-15] MEDS: TAMSULOSIN 0.4 MG CAP.SR.24H PO SCH (21:44)
[2016-10-15] MEDS: MONTELUKAST SODIUM (10MG) 10 MG TABLET PO SCH (21:44)
[2016-10-16] MEDS: GUAIFENESIN/CODEINE 10 ML UDC PO PRN ×2 (01:21→08:42)
[2016-10-16] MEDS: IPRATROPIUM NEB FS 0.5 MG/2.5 ML AMPUL.NEB NEB SCH ×3 (03:47→14:06)
[2016-10-16] MEDS: ALBUTEROL FS 2.5 MG/3 ML VIAL.NEB NEB SCH ×5 (03:47→14:06)
--- NOTE | 2016-10-16 06:08 | NUR ---
MS/RN NOTES PT. LYING IN BED RESTING. BREATHING EVEN AND UNLABORED ON 2LPM O2 VIA NC. NO SOB, RESPIRATORY DISTRESS OR COMPLAINTS OF PAIN NOTED AT THIS TIME. PT. WITH RIGHT FOREARM 18 GAUGE PERIPHERAL IV PRESENT, PATENT AND INTACT ADMINISTERING TO PT. NS @ 100ML/HR. PT. WITH RIGHT LEG SURGICAL DRESSING AND IMMOBILIZER PRESENT, INTACT AND IN PLACE. DRESSING REMAINS CLEAN, DRY AND INTACT WITH NO DRAINAGE OR BLEEDING NOTED. PT. RIGHT LOWER EXTREMITY ELEVATED ON PILLOWS AT ALL TIMES. ALL PT. NEEDS MET. BED IN LOWEST POSITION, CALL LIGHT WITHIN REACH, WILL ENDORSE TO DAYSHIFT NURSE FOR CONTINUITY OF CARE.
[2016-10-16 06:48] LABS: HEMATOCRIT 32 % (39-51); HEMOGLOBIN 10.5 g/dL (13.5-17.5); LYMPHOCYTES # (AUTO) 0.7 /CMM (0.8-4.8); LYMPHOCYTES % (AUTO) 5.5 % (20.0-44.0); MEAN CORPUSCULAR HEMOGLOBIN 29 PG (26.0-33.0); MEAN CORPUSCULAR HGB CONC 33 g/dl (31.0-36.0); MEAN CORPUSCULAR VOLUME 89 fL (80-96); MONOCYTES # (AUTO) 0.8 /CMM (0.1-1.30); MONOCYTES % (AUTO) 6.5 % (2.0-12.0); NEUTROPHILS # (AUTO) 10.9 /CMM (1.8-8.9); PLATELET COUNT (AUTO) 350 /CMM (150-450); RDW COEFFICIENT OF VARIATION 16.3 (11.5-15.0); RED BLOOD CELL COUNT(AUTO) 3.61 MIL/uL (4.5-6.0); WHITE BLOOD COUNT (AUTO) 12.4 K/uL (4.3-11.0)
[2016-10-16 06:59] LABS: CALCIUM, SERUM 8.1 mg/dL (8.5-10.1); CREATININE 1.3 mg/dL (0.6-1.3); MAGNESIUM 2.2 mg/dL (1.8-2.4); PHOSPHORUS 3.2 mg/dL (2.5-4.9); POTASSIUM 3.7 mmol/L (3.5-5.1)
--- NOTE | 2016-10-16 07:30 | NUR ---
MS/RN AM NOTES PT. IN BED,AAO X 4, GEORGIAN SPEAKING, SMALL GEORGIAN, S/P R QUADRICEPS TENDON REPAIR 10/13/[address] CLINTON, DRESSING AND IMMOBILIZER IN PLACE. ELEVATED ON PILLOW. ON O2 AT 2LPM NC, BREATHING EVEN AND UNLABORED, NO SOB, RESPIRATORY DISTRESS OR COMPLAINTS OF PAIN NOTED AT THIS TIME. RIGHT FOREARM 18 GAUGE IV SALINE LOCK PRESENT, FLUSHES WELL SITE CLEAR, BED IN LOWEST POSITION, CALL LIGHT WITHIN REACH, WILL CONT TO MONITOR. Addendum: 10/16/16 at 1121 by GLYNN HERRON RN ADDENDUM: PATIENT REFUSED TO BE HOOKED BACK TO IVF FOR NOW DUE TO COUGHING.
[2016-10-16 08:00] VITALS: BP_SYST 136; BP_SYST 163; BP_DIAS 67; BP_DIAS 77
[2016-10-16] MEDS: PANTOPRAZOLE 40 MG TABLET.DR PO SCH (08:37)
[2016-10-16] MEDS: predniSONE 20 MG TABLET PO SCH (08:37)
[2016-10-16] MEDS: FLUTICASONE/SALMETEROL DISKUS IH SCH ×2 (08:37→16:47)
[2016-10-16] MEDS: FLECAINIDE ACETATE (100 MG) 100 MG TABLET PO SCH ×2 (08:37→16:47)
--- NOTE | 2016-10-16 09:30 | NUR ---
MS RN NOTE ADMINISTERED DUE MEDS.
[2016-10-16 14:09] LABS: RENIN, PLASMA 46.502 ng/mL/hr (0.167-5.380)
--- NOTE | 2016-10-16 15:10 | NUR ---
MS RN NOTES PATIENT SEEN BY DR. CHAPIS AGUILA AND PHYSICAL THERAPY.
[2016-10-16 16:00] VITALS: BP 129/89
[2016-10-16] MEDS: RIVAROXABAN 10 MG TABLET PO SCH (16:48)
--- NOTE | 2016-10-16 17:20 | NUR ---
MS RN NOTES PATIENT TO GO HOME TODAY PER MD IN STABLE CONDITION. PROVIDED DC INSTRUCTIONS, MED RECON LIST AND HEALTH TEACHINGS. PATIENT GIVEN WALKER WELL. RT HAND IV ACCESS REMOVED, NO BLEEDING, DRESSING IN PLACE. REFUSE PHOTO OF SKIN ISSUES, STATED "IT WAS TAKEN AND NO NEED". PATIENT TO FOLLOW UP WITH PCP AND DR. CLINTON IN 1-2 WEEKS AND WILL MAKE OWN APPOINTMENT. SURGICAL DRESSING AND IMMOBILIZER TO RT KNEE IN PLACE. ALL BELONGINGS CHECKED AND RETURNED. ALL PAPER WORKS SIGNED. WILL BE PICKED UP BY /SON AND WILL BE TRANSPORTED TO HOME VIA PRIVATE CAR.
[2016-10-16 18:00] VITALS: BP 129/89
--- NOTE | 2016-10-16 18:18 | NUR ---
MS RN NOTES PATIENT PICKED UP BY SON AND HIS .
[2016-10-17 07:10] LABS: *SPE A/G RATIO 1.5 (0.7-1.7); *SPE ALBUMIN 3.2 g/dL (2.9-4.4); *SPE ALPHA-1-GLOBULIN 0.2 g/dL (0.0-0.4); *SPE ALPHA-2-GLOBULIN 0.7 g/dL (0.4-1.0); *SPE BETA GLOBULIN 0.8 g/dL (0.7-1.3); *SPE GLOBULIN, TOTAL 2.1 g/dL (2.2-3.9); *SPE M-SPIKE Not Observed g/dL (Not Observed); *SPE PROTEIN TOTAL 5.3 g/dL (6.0-8.5); *SPEGAMMA GLOBULIN 0.4 g/dL (0.4-1.8)
== END 2016-10-16 18:18 | disposition home or self-care (01) | DRG 500 ==
LOC: ER 09:43 → TELE-TD 11:45 → MEDSG2 12:30
PROVIDERS: ADMIT Nurse Practitioner Acute Care; ATTEND Nurse Practitioner Acute Care
PROC: 0QSD04Z Reposition Right Patella with Internal Fixation Device, Open Approach (ICD-10-PCS; 2016-10-13)
PROC: 0LMQ0ZZ Reattachment of Right Knee Tendon, Open Approach (ICD-10-PCS; principal; 2016-10-13 17:47)
DX: S82.001A Unspecified fracture of right patella, initial encounter for closed fracture (principal); N17.0 Acute kidney failure with tubular necrosis; I13.0 Hypertensive heart and chronic kidney disease with heart failure and stage 1 through stage 4 chronic kidney disease, or unspecified chronic kidney disease; D68.59 Other primary thrombophilia; R29.6 Repeated falls; Z79.01 Long term (current) use of anticoagulants; W10.9XXA Fall (on) (from) unspecified stairs and steps, initial encounter; Y93.01 Activity, walking, marching and hiking; Y92.89 Other specified places as the place of occurrence of the external cause; I50.9 Heart failure, unspecified; I48.91 Unspecified atrial fibrillation; I25.10 Atherosclerotic heart disease of native coronary artery without angina pectoris; E78.5 Hyperlipidemia, unspecified; J44.9 Chronic obstructive pulmonary disease, unspecified; N40.0 Benign prostatic hyperplasia without lower urinary tract symptoms; K21.9 Gastro-esophageal reflux disease without esophagitis; F32.9 Major depressive disorder, single episode, unspecified; F41.9 Anxiety disorder, unspecified; Z87.891 Personal history of nicotine dependence; S09.90XA Unspecified injury of head, initial encounter; D63.8 Anemia in other chronic diseases classified elsewhere; N18.9 Chronic kidney disease, unspecified; E87.5 Hyperkalemia; Z92.3 Personal history of irradiation; S76.111A Strain of right quadriceps muscle, fascia and tendon, initial encounter; R73.9 Hyperglycemia, unspecified; D72.829 Elevated white blood cell count, unspecified; E66.9 Obesity, unspecified; M19.90 Unspecified osteoarthritis, unspecified site; Z86.718 Personal history of other venous thrombosis and embolism; Z99.81 Dependence on supplemental oxygen
CPT/HCPCS: 36415; 36600; 70450-TC; 71010-TC; 73564-TC; 73700-TC; 76770-TC; 80048-TC; 80053-TC; 80061-TC; 80076-TC; 81000-TC; 82088; 82533; 82784; 83735-TC; 84100-TC; 84155; 84165; 84244; 84443-TC; 84484-TC; 85025-TC; 85730-TC; 86334; 86850-TC; 87081-TC; 90715; 94799-TC; 97001-TC; 97110-TC; 97116-TC; 97530-TC; A4217; A4606; A6402; J0690; J1100; J2270; J2405; J2704; J2930; J3490; J7030; J7060; L1830; Z7610

== ENCOUNTER 2017-07-25 14:38 | Outpatient (CLI) | payer MEDICARE, OTHER ==
[~2017-07-25 14:38] MED LIST changes: -AMOX-430 PO; -PRED20TA GT; -PRED20TA PO; -PRED50TA PO
== END 2017-07-25 23:59 | disposition home or self-care (01) ==
LOC: CARD 14:38
PROVIDERS: ATTEND Internal Medicine Interventional Cardiology
DX: M79.89 Other specified soft tissue disorders (principal)
CPT/HCPCS: 93970-TC

== ENCOUNTER 2018-02-20 13:39 | Outpatient (CLI) | payer MEDICARE, OTHER ==
[~2018-02-20 13:39] MED LIST changes: +CLON0.5T12 PO; -CLON0.5T4 PO
== END 2018-02-20 23:59 | disposition home or self-care (01) ==
LOC: WOU 13:39
PROVIDERS: ATTEND Podiatrist Foot & Ankle Surgery
DX: I87.2 Venous insufficiency (chronic) (peripheral) (principal); L97.822 Non-pressure chronic ulcer of other part of left lower leg with fat layer exposed; L03.116 Cellulitis of left lower limb; B95.62 Methicillin resistant Staphylococcus aureus infection as the cause of diseases classified elsewhere; I73.9 Peripheral vascular disease, unspecified; I89.0 Lymphedema, not elsewhere classified; I10 Essential (primary) hypertension; Z98.42 Cataract extraction status, left eye; Z98.41 Cataract extraction status, right eye; Z79.01 Long term (current) use of anticoagulants
CPT/HCPCS: 11042; 87070; 87075; 87077; A6402 ×2; Z7610

== ENCOUNTER 2018-02-22 12:42 | Outpatient (CLI) | payer MEDICARE, OTHER ==
[2018-02-22 15:10] LABS: HEMATOCRIT 35 % (39-51); HEMOGLOBIN 10.9 g/dL (13.5-17.5); MEAN CORPUSCULAR HEMOGLOBIN 26 PG (26.0-33.0); MEAN CORPUSCULAR HGB CONC 31 g/dl (31.0-36.0); MEAN CORPUSCULAR VOLUME 83 fL (80-96); PLATELET COUNT (AUTO) 442 /CMM (150-450); RDW COEFFICIENT OF VARIATION 20.3 (11.5-15.0); WHITE BLOOD COUNT (AUTO) 9.2 K/uL (4.3-11.0)
[2018-02-22 16:01] LABS: LYMPHOCYTES % (MANUAL) 6 % (16-48); MONOCYTES % (MANUAL) 6 % (0-11.0); NEUTROPHILS % (MANUAL) 88 (42-76)
== END 2018-02-22 23:59 | disposition home or self-care (01) ==
LOC: WOU 12:42
PROVIDERS: ATTEND Podiatrist Foot & Ankle Surgery
DX: R60.0 Localized edema (principal); I82.432 Acute embolism and thrombosis of left popliteal vein; R94.8 Abnormal results of function studies of other organs and systems
CPT/HCPCS: 36415; 85025; 85652; 86140; 93926; 93971; Z7610

== ENCOUNTER 2018-02-27 13:58 | Outpatient (CLI) | payer MEDICARE, OTHER | END 2018-02-27 23:59 | disposition home or self-care (01) | LOC: WOU 13:58 | PROVIDERS: ATTEND Podiatrist Foot & Ankle Surgery | DX: I87.2 Venous insufficiency (chronic) (peripheral) (principal); L97.822 Non-pressure chronic ulcer of other part of left lower leg with fat layer exposed; I73.9 Peripheral vascular disease, unspecified; L03.116 Cellulitis of left lower limb; B95.62 Methicillin resistant Staphylococcus aureus infection as the cause of diseases classified elsewhere | CPT/HCPCS: A6402; G0463; Z7610 ==

== ENCOUNTER 2018-03-07 13:36 | Outpatient (CLI) | payer MEDICARE, OTHER | END 2018-03-07 23:59 | disposition home or self-care (01) | LOC: VASLAB 13:36 | PROVIDERS: ATTEND Surgery Vascular Surgery | DX: I82.502 Chronic embolism and thrombosis of unspecified deep veins of left lower extremity (principal); Z86.718 Personal history of other venous thrombosis and embolism; Z79.01 Long term (current) use of anticoagulants; I87.2 Venous insufficiency (chronic) (peripheral); L97.822 Non-pressure chronic ulcer of other part of left lower leg with fat layer exposed; I48.2 Chronic atrial fibrillation | CPT/HCPCS: A6402; G0463; Z7610 ==

== ENCOUNTER 2018-03-09 12:10 | Outpatient (CLI) | payer MEDICARE, OTHER | END 2018-03-09 23:59 | disposition home or self-care (01) | LOC: WOU 12:10 | PROVIDERS: ATTEND Podiatrist Foot & Ankle Surgery | DX: L03.116 Cellulitis of left lower limb (principal); L97.822 Non-pressure chronic ulcer of other part of left lower leg with fat layer exposed; I87.2 Venous insufficiency (chronic) (peripheral); I73.9 Peripheral vascular disease, unspecified; Z79.51 Long term (current) use of inhaled steroids; Z79.52 Long term (current) use of systemic steroids | CPT/HCPCS: 11042; A6402; Z7610 ==

== ENCOUNTER 2018-03-16 12:20 | Outpatient (CLI) | payer MEDICARE, OTHER | END 2018-03-16 23:59 | disposition home or self-care (01) | LOC: WOU 12:20 | PROVIDERS: ATTEND Podiatrist Foot & Ankle Surgery | DX: I87.2 Venous insufficiency (chronic) (peripheral) (principal); L97.822 Non-pressure chronic ulcer of other part of left lower leg with fat layer exposed; Z98.890 Other specified postprocedural states | CPT/HCPCS: 11042; A6402; Z7610 ==

== ENCOUNTER 2018-03-23 12:09 | Outpatient (CLI) | payer MEDICARE, OTHER | END 2018-03-23 23:59 | disposition home or self-care (01) | LOC: WOU 12:09 | PROVIDERS: ATTEND Podiatrist Foot & Ankle Surgery | DX: I87.2 Venous insufficiency (chronic) (peripheral) (principal); L97.222 Non-pressure chronic ulcer of left calf with fat layer exposed; Z79.52 Long term (current) use of systemic steroids | CPT/HCPCS: 11042; A6402 ==

== ENCOUNTER 2018-03-30 12:29 | Outpatient (CLI) | payer MEDICARE, OTHER ==
[2018-03-31] MEDS ORDERED: AZITHROMYCIN 500 MG VIAL ONE (00:47)
== END 2018-03-30 23:59 | disposition home or self-care (01) ==
LOC: WOU 12:29
PROVIDERS: ATTEND Podiatrist Foot & Ankle Surgery
DX: I87.2 Venous insufficiency (chronic) (peripheral) (principal); L97.822 Non-pressure chronic ulcer of other part of left lower leg with fat layer exposed; R06.02 Shortness of breath; Z79.52 Long term (current) use of systemic steroids
CPT/HCPCS: 15271; A6402; G0463; Q4133; Z7610; A6253; J0456

== ENCOUNTER 2018-03-30 20:56 | Inpatient (IN) | payer MEDICARE, OTHER ==
[~2018-03-30] VITALS: Ht 172.7 cm; Wt 79.8 kg
--- NOTE | 2018-03-30 20:56 | NUR ---
PT BB RA C/O SOB X2 DAYS WITH AUDIBLE RHALES WITH MINIMAL WHEEZING. PT IS TACHYCARDIC UPON ARRIVAL. PT IS ALERT AND ORIENTED X4 ABLE TO MAKE NEEDS KNOWN. SKIN WARM AND INTACT. PLACED ON CLAIMS DIRECTOR. PT RECEIVED X3 NITRO EN ROUTE OF TOTAL DOSAGE OF 0.20MG. IV PLACED ON RIGHT WRIST 18G BY RA. WILL CONTINUE TO MONITOR FOR ANY CHANGES DURING THE SHIFT.
[2018-03-30] MEDS ORDERED: Magnesium 1GM/D5W 100ML PREMIX 200 ML IV ONE ×2 (20:57→21:16)
--- NOTE | 2018-03-30 20:57 | NUR ---
ER MD WYNNE AT BEDSIDE
[2018-03-30] MEDS ORDERED: ALBUTEROL FS 2.5 MG/3 ML VIAL.NEB ONE (20:59)
[2018-03-30] MEDS ORDERED: ALBUTEROL FS 2.5 MG/3 ML VIAL.NEB CONTNEB ONE (21:00)
[2018-03-30] MEDS ORDERED: DEXAMETHASONE SOD PHOSPHATE 10 MG/ML VIAL IV ONE (21:00)
[2018-03-30] MEDS ORDERED: TERBUTALINE SULFATE 1 MG/ML VIAL SQ ONE (21:00)
[2018-03-30] MEDS ORDERED: IPRATROPIUM NEB FS 0.5 MG/2.5 ML AMPUL.NEB NEB ONE (21:00)
--- NOTE | 2018-03-30 21:00 | NUR ---
RT AT BEDSIDE FOR BREATHING TX
--- NOTE | 2018-03-30 21:05 | NUR ---
EKG AT BEDSIDE
--- NOTE | 2018-03-30 21:08 | NUR ---
XRAY AT BEDSIDE
[2018-03-30] MEDS ORDERED: TERBUTALINE SULFATE 1 MG/ML VIAL ONE (21:16)
[2018-03-30] MEDS ORDERED: DEXAMETHASONE SOD PHOSPHATE 10 MG/ML VIAL ONE (21:16)
[2018-03-30 21:19] LABS: ABG BASE EXCESS -2.6 mmol/L; ABG OXYGEN SATURATION 97.4 % (92.0-98.5); ABG PCO2 58.6 mmHg (35.0-45.0); ABG PH 7.252 (7.350-7.450); ABG PO2 139.5 mmHg (75.0-100.0); AaDO2 151.1 mmHg; COHb 0.3 % (0.5-1.5); MetHb 0.4 % (0.0-1.5); O2Hb 96.7 % (94.0-97.0); SITE, ABG Right Radial; VENT MODE, BG 5L FACE MASK
[2018-03-30 21:39] VITALS: BP 116/48
[2018-03-30 21:41] LABS: BASOPHILS % (AUTO) 0.2 % (0.0-2.0); EOSINOPHILS % (AUTO) 5.2 % (0.0-6.0); HEMATOCRIT 32 % (39-51); HEMOGLOBIN 10.3 g/dL (13.5-17.5); LYMPHOCYTES # (AUTO) 1.6 /CMM (0.8-4.8); LYMPHOCYTES % (AUTO) 12.6 % (20.0-44.0); MEAN CORPUSCULAR HEMOGLOBIN 27 PG (26.0-33.0); MEAN CORPUSCULAR HGB CONC 33 g/dl (31.0-36.0); MEAN CORPUSCULAR VOLUME 84 fL (80-96); MONOCYTES # (AUTO) 0.9 /CMM (0.1-1.30); MONOCYTES % (AUTO) 7.1 % (2.0-12.0); NEUTROPHILS # (AUTO) 9.5 /CMM (1.8-8.9); NEUTROPHILS % (AUTO) 74.9 % (43.0-81.0); PLATELET COUNT (AUTO) 458 /CMM (150-450); RDW COEFFICIENT OF VARIATION 20.9 (11.5-15.0); RED BLOOD CELL COUNT(AUTO) 3.76 MIL/uL (4.5-6.0); WHITE BLOOD COUNT (AUTO) 12.7 K/uL (4.3-11.0)
[2018-03-30 21:59] LABS: TROPONIN I 0.026 ng/mL (0.00-0.056)
[2018-03-30 22:12] LABS: CALCIUM, SERUM 8.2 mg/dL (8.5-10.1); CARBON DIOXIDE 25 mmol/L (21-32); CHLORIDE 106 mmol/L (98-107); CREATININE 1.1 mg/dL (0.6-1.3); GLUCOSE 168 mg/dL (74-106); POTASSIUM 4.6 mmol/L (3.5-5.1); SODIUM SERUM 139 mmol/L (136-145); UREA NITROGEN, BLOOD 32 mg/dL (7-18)
--- NOTE | 2018-03-30 22:13 | NUR ---
PATIENT PLACED ON BIPAP WITH SETTINGS OF 18/5 RATE 16 WITH FI02 OF 30%
--- NOTE | 2018-03-30 22:16 | NUR ---
ROOM 260 ICU
[2018-03-30 22:23] LABS: B-TYPE NATRIURETIC PEPTIDE 192 PG/ML (0-125)
[2018-03-30] MEDS ORDERED: PIPERACILLIN /TAZOBACTAM 3.375 G VIAL IV ONE (22:27)
[2018-03-30] MEDS ORDERED: PIPERACILLIN /TAZOBACTAM 3.375 G in IV D5W 50 ML IV ONE (22:30)
--- NOTE | 2018-03-30 22:47 | NUR ---
CREDIT RISK MANAGER: 88-YEAR-OLD MALE ADMITTED TO ICU VIA [facility] FOR PRIMARY DX OF ACUTE RESPIRATORY FAILURE D/T COPD EXACERBATION. RECEIVED PT. ALERT AND ORIENTED X 3. WAS ON 5L O2 VIA NC WT NO ACUTE DISTRESS, NO C/O PAIN. PLACED ON BIPAP WT SETTINGS ORDERED. NSR ON TALKING BOOKS LIBRARY CLERK. BODY ASSESSMENT DONE. HOB AT 35 DEGREES. AWAITING FOR MD ADMISSION ORDERS. WILL CONTINUE TO MONITOR.
[2018-03-30 23:15] VITALS: BP 132/60
[2018-03-30 23:32] VITALS: BP 108/44
[2018-03-30 23:53] VITALS: BP 109/45
--- NOTE | 2018-03-30 23:53 | NUR ---
RCVD PT ON BIPAP 18/5,RATE,16,FIO2 30%. BIPAP PLUGGED INTO RED OUTLET. ALARMS ON AND AUDIBLE. AMBU BAG AT BEDSIDE. ABG DONE @ 00:02 NO RESPIRATORY DISTRESS NOTED AT THIS TIME. WILL CONTINUE TO MONITOR THE PT.
[2018-03-31] VITALS (23 sets, daily range): BP systolic 101–154; BP diastolic 43–59
[2018-03-31] MEDS ORDERED: IPRATROPIUM NEB FS 0.5 MG/2.5 ML AMPUL.NEB NEB ONE
[2018-03-31] MEDS ORDERED: ENOXAPARIN SODIUM 40 MG/0.4 ML DISP.SYRIN SQ SCH
[2018-03-31 00:19] LABS: ABG OXYGEN SATURATION 96.1 % (92.0-98.5); ABG PCO2 46.1 mmHg (35.0-45.0); ABG PH 7.318 (7.350-7.450); ABG PO2 98.8 mmHg (75.0-100.0); AaDO2 60.9 mmHg; COHb 0.3 % (0.5-1.5); MetHb 0.4 % (0.0-1.5); O2Hb 95.4 % (94.0-97.0); PEEP,BG 5 cm H2O; SITE, ABG Right Radial
[2018-03-31] MEDS ORDERED: MECLIZINE HCL 25 MG TABLET PO PRN (00:30)
[2018-03-31] MEDS ORDERED: TRAMADOL HCL 50 MG TABLET PO PRN (00:30)
[2018-03-31] MEDS ORDERED: clonazePAM 0.5 MG TABLET PO PRN (00:30)
[2018-03-31] MEDS: AZITHROMYCIN 500 MG in IV D5W 250 ML IV SCH ×2 (00:53→23:21)
[2018-03-31] MEDS: IPRATROPIUM NEB FS 0.5 MG/2.5 ML AMPUL.NEB NEB SCH ×6 (03:54→23:51)
[2018-03-31] MEDS: ALBUTEROL FS 2.5 MG/0.5 ML VIAL.NEB NEB SCH ×6 (03:54→23:51)
--- NOTE | 2018-03-31 04:00 | NUR ---
FLOOR CASHIER: ABLE TO URINATE ON THE URINAL. URINE SPECIMEN COLLECTED. NO SOB, BIPAP SETTINGS TOLERATED WELL.
[2018-03-31 04:41] LABS: HEMATOCRIT 37 % (39-51); HEMOGLOBIN 11.2 g/dL (13.5-17.5); MEAN CORPUSCULAR HEMOGLOBIN 26 PG (26.0-33.0); MEAN CORPUSCULAR HGB CONC 30 g/dl (31.0-36.0); MEAN CORPUSCULAR VOLUME 86 fL (80-96); PLATELET COUNT (AUTO) 479 /CMM (150-450); RDW COEFFICIENT OF VARIATION 21.7 (11.5-15.0); RED BLOOD CELL COUNT(AUTO) 4.26 MIL/uL (4.5-6.0); WHITE BLOOD COUNT (AUTO) 8.4 K/uL (4.3-11.0)
[2018-03-31 04:57] LABS: CALCIUM, SERUM 8.6 mg/dL (8.5-10.1); CARBON DIOXIDE 24 mmol/L (21-32); CHLORIDE 104 mmol/L (98-107); CREATININE 1.4 mg/dL (0.6-1.3); GLUCOSE 171 mg/dL (74-106); POTASSIUM 5.3 mmol/L (3.5-5.1); SODIUM SERUM 137 mmol/L (136-145); UREA NITROGEN, BLOOD 30 mg/dL (7-18)
[2018-03-31 05:20] LABS: CHOLESTEROL 178 mg/dL (<200); HDL CHOLESTEROL 73 mg/dL (40-60); LDL 99 mg/dL (0-99); THYROID STIMULATING HORMONE 0.663 uIU/mL (0.358-3.74); TRIGLYCERIDES 25 mg/dL (30-150)
[2018-03-31 05:26] LABS: IRON, SERUM 39 ug/dl (50-175); TOTAL IRON BINDING CAPACITY 228 ug/dl (250-450)
--- NOTE | 2018-03-31 06:30 | NUR ---
HARDWARE SUPPLIES SALES REPRESENTATIVE: REMAINED A/O X 3. BIPAP SETTINGS ORDERED WT NO ACUTE DISTRESS. NO C/O PAIN. VS WITHIN HIS BASELINE. SAFETY PRECAUTION NOTED AT ALL TIMES. CALL LIGHT KEPT WITHIN REACH.
--- NOTE | 2018-03-31 07:30 | NUR ---
INITIAL PT A/O X 3. BIPAP SETTINGS ORDERED WT NO ACUTE DISTRESS. NO C/O PAIN. VS WITHIN HIS BASELINE. PT NSR WITH ELEVATED "T-WAVES" SINCE ADMISSION MD SCHULTZ. PT HAS BEEN NPO SINCE ADMISSION TAKEN OFF BIPAP AT 0740 ON 2 LPM NC SATURATING WELL RECEIVING BREATHING TREATMENT. SAFETY PRECAUTION NOTED AT ALL TIMES. CALL LIGHT KEPT WITHIN REACH. BED IN LOW POSITION LOCKED WILL CONTINUE TO MONITOR.
[2018-03-31 07:54] LABS: APPEARANCE,URINE CLEAR (CLEAR); BILIRUBIN,URINE NEGATIVE (NEGATIVE); BLOOD, URINE NEGATIVE Ery/uL (NEGATIVE); COLOR,URINE YELLOW (YELLOW); KETONES,URINE NEGATIVE (NEGATIVE); LEUKOCYTE ESTERASE ,URINE NEGATIVE (NEGATIVE); NITRITE, URINE NEGATIVE (NEGATIVE); PH,URINE 5.5 (5.0-8.0); PROTEIN,URINE NEGATIVE (NEGATIVE); UGLUCOSE NEGATIVE (NEGATIVE); UROBILINOGEN,URINE 0.2 EU/dL (0.2)
[2018-03-31] MEDS ORDERED: Medication Not On Formulary EA (Cyclosporine (Restasis) 1 DROP) EACHEYE SCH (09:00)
[2018-03-31] MEDS ORDERED: methylPREDNISolone ACETATE 80 MG/ML VIAL IJ SCH ×2 (09:00)
[2018-03-31] MEDS ORDERED: predniSONE 10 MG TABLET PO SCH (09:00)
[2018-03-31] MEDS ORDERED: TIOTROPIUM BROMIDE 6 CAP/BOX CAP.W.DEV IH SCH (09:00)
[2018-03-31] MEDS: FLUTICASONE/VILANTEROL 1 EACH BLST.W.DEV IH SCH (10:32)
[2018-03-31] MEDS: BENAZEPRIL HCL 20 MG TABLET PO SCH (10:33)
[2018-03-31] MEDS: AMLODIPINE BESYLATE 10 MG TABLET PO SCH (10:33)
[2018-03-31] MEDS: FUROSEMIDE 40 MG TABLET PO SCH (10:33)
[2018-03-31] MEDS: VALSARTAN 80 MG TABLET PO SCH (10:34)
[2018-03-31] MEDS: FLECAINIDE ACETATE (100 MG) 100 MG TABLET PO SCH ×2 (10:34→17:55)
[2018-03-31] MEDS: methylPREDNISolone SOD SUCC 125 MG/2ML VIAL IV SCH (10:39)
[2018-03-31] MEDS: GUAIFENESIN/D-METHORPHAN HB 5 ML UDC PO PRN ×2 (11:09→21:50)
--- NOTE | 2018-03-31 16:00 | NUR ---
pt. transferred here via w/c.tele hooked up.sr rate of 79.in good spirits.made comfortable. vs stable.
--- NOTE | 2018-03-31 16:20 | NUR ---
photo taken of bruises rt. arm.placed in chart.
[2018-03-31] MEDS ORDERED: RIVAROXABAN 10 MG TABLET PO SCH (17:00)
[2018-03-31] MEDS: RIVAROXABAN 15 MG TABLET PO SCH (17:55)
[2018-03-31] MEDS: NEOMY SULF/BACITRAC ZN/POLY 15 GM TUBE TP SCH (18:03)
--- NOTE | 2018-03-31 19:00 | NUR ---
EDGE STITCHER OPENING NOTES PT IN BED A/O X 3.NO SOB OR S/S PAIN NOTED AT THIS TIME.PT ON O2 VIA NC 2 L, ALSO BREATHING TREATMENT.PT SR HR 79 AT THIS TIME. CALL LIGHT WITHIN REACH. BED IN LOW POSITION AND LOCKED.WILL CONTINUE TO MONITOR.
[2018-03-31] MEDS: GABAPENTIN 300 MG CAPSULE PO SCH (21:48)
[2018-03-31] MEDS: DUTASTERIDE (0.5 MG) 0.5 MG CAPSULE PO SCH (21:49)
[2018-03-31] MEDS: TAMSULOSIN 0.4 MG CAP.SR.24H PO SCH (21:50)
[2018-03-31] MEDS: MONTELUKAST SODIUM (10MG) 10 MG TABLET PO SCH (21:50)
[2018-04-01] VITALS (8 sets, daily range): BP systolic 112–133; BP diastolic 44–62
[2018-04-01] MEDS: IPRATROPIUM NEB FS 0.5 MG/2.5 ML AMPUL.NEB NEB SCH ×6 (02:26→23:10)
[2018-04-01] MEDS: ALBUTEROL FS 2.5 MG/0.5 ML VIAL.NEB NEB SCH ×6 (02:26→23:10)
--- NOTE | 2018-04-01 06:34 | NUR ---
EMERGENCY DEPARTMENT PHYSICIAN CLOSING NOTES PT IN BED A/O X 3.NO SOB OR S/S PAIN NOTED AT THIS TIME.PT ON O2 VIA NC 2 L.PT SR HR 67 AT THIS TIME.ALL NEEDS ATTENDED AND MEDS GIVEN. CALL LIGHT WITHIN REACH. BED IN LOW POSITION AND LOCKET.SIDE RAILS UP X2.
[2018-04-01] MEDS: GUAIFENESIN/D-METHORPHAN HB 5 ML UDC PO PRN ×3 (07:03→21:51)
--- NOTE | 2018-04-01 07:10 | NUR ---
television equipment operator initial notes Received patient in bed, awake, head of bed elevated, no SOB or distress noted, on 02 @ 2lpm via NC with 02 saturation of 98%. IV intact and patent HL only. Patient verbalized that he is having a headache and informed night RN, pain and cough medications administered. Call light with in patient reach, will continue to monitor. On tele monitor SR heart rate of 84.
[2018-04-01] MEDS: BENAZEPRIL HCL 20 MG TABLET PO SCH (08:21)
[2018-04-01] MEDS: FLECAINIDE ACETATE (100 MG) 100 MG TABLET PO SCH ×2 (08:21→16:23)
[2018-04-01] MEDS: FUROSEMIDE 40 MG TABLET PO SCH (08:21)
[2018-04-01] MEDS: VALSARTAN 80 MG TABLET PO SCH (08:22)
[2018-04-01] MEDS: AMLODIPINE BESYLATE 10 MG TABLET PO SCH (08:22)
[2018-04-01] MEDS: methylPREDNISolone SOD SUCC 125 MG/2ML VIAL IV SCH (08:22)
[2018-04-01] MEDS: FLUTICASONE/VILANTEROL 1 EACH BLST.W.DEV IH SCH (08:25)
[2018-04-01] MEDS: NEOMY SULF/BACITRAC ZN/POLY 15 GM TUBE TP SCH (08:26)
--- NOTE | 2018-04-01 09:00 | NUR ---
television cameraman notes Dr. Pastrana on site and informed regarding patient potassium taken 03/31/18 and per MD it's okay we will just monitor the patient. All orders carried out and noted.
[2018-04-01] MEDS: RIVAROXABAN 15 MG TABLET PO SCH (16:23)
--- NOTE | 2018-04-01 19:01 | NUR ---
ms rn closing notes All needs provided, attended, and anticipated. patient in stable condition. Endorsed to next shift RN to continue care. Call light with in patient reach.
--- NOTE | 2018-04-01 19:02 | NUR ---
MS RN OPENING NOTES PT IN BED A/O X 3.NO SOB OR S/S PAIN NOTED AT THIS TIME.PT ON O2 VIA NC 2 L.CALL LIGHT WITHIN REACH. BED IN LOW POSITION AND LOCKED.WILL CONTINUE TO MONITOR.
[2018-04-01] MEDS: DUTASTERIDE (0.5 MG) 0.5 MG CAPSULE PO SCH (21:46)
[2018-04-01] MEDS: TAMSULOSIN 0.4 MG CAP.SR.24H PO SCH (21:47)
[2018-04-01] MEDS: GABAPENTIN 300 MG CAPSULE PO SCH (21:47)
[2018-04-01] MEDS: MONTELUKAST SODIUM (10MG) 10 MG TABLET PO SCH (21:48)
[2018-04-02] MEDS: AZITHROMYCIN 500 MG in IV D5W 250 ML IV SCH (00:53)
[2018-04-02 01:00] VITALS: BP 132/74
[2018-04-02] MEDS: IPRATROPIUM NEB FS 0.5 MG/2.5 ML AMPUL.NEB NEB SCH ×3 (02:50→11:34)
[2018-04-02] MEDS: ALBUTEROL FS 2.5 MG/0.5 ML VIAL.NEB NEB SCH ×3 (02:50→11:34)
[2018-04-02 06:41] LABS: CALCIUM, SERUM 8.3 mg/dL (8.5-10.1); CARBON DIOXIDE 28 mmol/L (21-32); CHLORIDE 104 mmol/L (98-107); CREATININE 1.4 mg/dL (0.6-1.3); GLUCOSE 117 mg/dL (74-106); POTASSIUM 4.7 mmol/L (3.5-5.1); SODIUM SERUM 141 mmol/L (136-145); UREA NITROGEN, BLOOD 49 mg/dL (7-18)
[2018-04-02 06:52] LABS: BASOPHILS % (AUTO) 0.2 % (0.0-2.0); EOSINOPHILS % (AUTO) 0.1 % (0.0-6.0); HEMATOCRIT 33 % (39-51); HEMOGLOBIN 10.8 g/dL (13.5-17.5); LYMPHOCYTES # (AUTO) 0.6 /CMM (0.8-4.8); LYMPHOCYTES % (AUTO) 3.3 % (20.0-44.0); MEAN CORPUSCULAR HEMOGLOBIN 27 PG (26.0-33.0); MEAN CORPUSCULAR HGB CONC 33 g/dl (31.0-36.0); MEAN CORPUSCULAR VOLUME 83 fL (80-96); MONOCYTES # (AUTO) 0.9 /CMM (0.1-1.30); MONOCYTES % (AUTO) 5.5 % (2.0-12.0); NEUTROPHILS # (AUTO) 15.3 /CMM (1.8-8.9); NEUTROPHILS % (AUTO) 90.9 % (43.0-81.0); PLATELET COUNT (AUTO) 464 /CMM (150-450); RDW COEFFICIENT OF VARIATION 20.5 (11.5-15.0); RED BLOOD CELL COUNT(AUTO) 3.98 MIL/uL (4.5-6.0); WHITE BLOOD COUNT (AUTO) 16.8 K/uL (4.3-11.0)
--- NOTE | 2018-04-02 07:05 | NUR ---
ms rn initial notes Received patient in bed, awake, head of bed elevated, no SOB or distress noted, on 02 @ 2lpm via NC with 02 saturation of 96%. IV intact and patent HL only. no complaint of pain or discomfort at this time. Call light with in patient reach, will continue to monitor.
[2018-04-02 08:00] VITALS: BP 134/55
[2018-04-02] MEDS: FLECAINIDE ACETATE (100 MG) 100 MG TABLET PO SCH (08:24)
[2018-04-02] MEDS: methylPREDNISolone SOD SUCC 125 MG/2ML VIAL IV SCH (08:24)
[2018-04-02 08:25] VITALS: BP 134/55
[2018-04-02] MEDS: AMLODIPINE BESYLATE 10 MG TABLET PO SCH (08:25)
[2018-04-02] MEDS: NEOMY SULF/BACITRAC ZN/POLY 15 GM TUBE TP SCH (08:27)
[2018-04-02] MEDS: FLUTICASONE/VILANTEROL 1 EACH BLST.W.DEV IH SCH (08:27)
[2018-04-02] MEDS ORDERED: PRED20TA PO (08:27)
[2018-04-02] MEDS ORDERED: AZIT250T13 PO (08:38)
--- NOTE | 2018-04-02 08:57 | NUR ---
ms rn notes Dr. Pastrana came seen and examined the patient and ordered to discontinue Lasix as ordered. All orders carried out and noted.
[2018-04-02 09:50] LABS: BASOPHILS % (MANUAL) 0 % (0.0-2.0); EOSINOPHILS % (MANUAL) 0 % (0-4); LYMPHOCYTES % (MANUAL) 5 % (16-48); MONOCYTES % (MANUAL) 7 % (0-11.0); NEUTROPHILS % (MANUAL) 88 (42-76)
[2018-04-02] MEDS: GUAIFENESIN/D-METHORPHAN HB 5 ML UDC PO PRN (11:28)
--- NOTE | 2018-04-02 14:20 | NUR ---
ms supervisor blast furnace notes Discharge instructions given to patient and able to understand instructions. Signed discharge paper and belonging list, prescription given. Informed to follow up with primary health care physician in 1-2 weeks, and follow up with furniture finisher Dr. Sanchez in 1 week. Pictures taken and filed in the chart. PNA and flu vaccine not given due to refusal. Granddaughter Trini came to case picker the patient. Left in stable condition, no complaint of pain or discomfort, nor chest pain. Vital signs checked and recorded. MD and charge nurse aware.
== END 2018-04-02 14:20 | disposition home or self-care (01) | DRG 193 ==
LOC: ER 20:57 → ICU 22:29 → TELE 03-31 15:17 → MED 04-01 08:52
PROVIDERS: ADMIT Registered Nurse; ATTEND Registered Nurse
PROC: 5A09357 Assistance with Respiratory Ventilation, Less than 24 Consecutive Hours, Continuous Positive Airway Pressure (ICD-10-PCS; principal; 2018-03-30)
DX: J15.9 Unspecified bacterial pneumonia (principal); J96.01 Acute respiratory failure with hypoxia; N17.0 Acute kidney failure with tubular necrosis; G93.41 Metabolic encephalopathy; J96.02 Acute respiratory failure with hypercapnia; J44.1 Chronic obstructive pulmonary disease with (acute) exacerbation; J44.0 Chronic obstructive pulmonary disease with (acute) lower respiratory infection; I13.0 Hypertensive heart and chronic kidney disease with heart failure and stage 1 through stage 4 chronic kidney disease, or unspecified chronic kidney disease; L97.929 Non-pressure chronic ulcer of unspecified part of left lower leg with unspecified severity; E87.2 Acidosis; N18.9 Chronic kidney disease, unspecified; D63.8 Anemia in other chronic diseases classified elsewhere; F29 Unspecified psychosis not due to a substance or known physiological condition; I48.91 Unspecified atrial fibrillation; I50.9 Heart failure, unspecified; I25.10 Atherosclerotic heart disease of native coronary artery without angina pectoris; K21.9 Gastro-esophageal reflux disease without esophagitis; E78.5 Hyperlipidemia, unspecified; N40.0 Benign prostatic hyperplasia without lower urinary tract symptoms; F32.9 Major depressive disorder, single episode, unspecified; F41.9 Anxiety disorder, unspecified; E87.5 Hyperkalemia; S51.812A Laceration without foreign body of left forearm, initial encounter; Z79.01 Long term (current) use of anticoagulants; I89.0 Lymphedema, not elsewhere classified; Z85.46 Personal history of malignant neoplasm of prostate; Z99.81 Dependence on supplemental oxygen; Z92.3 Personal history of irradiation
CPT/HCPCS: 36415; 36600; 71045-TC; 80048-TC; 80061-TC; 81000-TC; 82803-TC; 83540-TC; 83605-TC; 83735-TC; 83880; 84100-TC; 84443-TC; 84484-TC; 85025-TC; 87040-TC; 87081-TC; 93307-TC; 94760-TC; A4606; A6402; J0456; J1040; J1100; J1650; J2543; J2930; J3105; J3475; J7060; Z7610

== ENCOUNTER 2018-04-06 12:53 | Outpatient (CLI) | payer MEDICARE, OTHER ==
[~2018-04-06 12:53] MED LIST changes: +AZIT250T13 PO; -FURO40TA5 PO; -PRED10TA PO; +PRED20TA PO; -VALS80TA2 PO
== END 2018-04-06 23:59 | disposition home or self-care (01) ==
LOC: WOU 12:53
PROVIDERS: ATTEND Podiatrist Foot & Ankle Surgery
DX: L97.222 Non-pressure chronic ulcer of left calf with fat layer exposed (principal); I83.228 Varicose veins of left lower extremity with both ulcer of other part of lower extremity and inflammation; I82.5Z2 Chronic embolism and thrombosis of unspecified deep veins of left distal lower extremity
CPT/HCPCS: A6402; G0463; Z7610

== ENCOUNTER 2018-04-13 12:58 | Outpatient (CLI) | payer MEDICARE, OTHER | END 2018-04-13 23:59 | disposition home or self-care (01) | LOC: WOU 12:58 | PROVIDERS: ATTEND Podiatrist Foot & Ankle Surgery | DX: I87.2 Venous insufficiency (chronic) (peripheral) (principal); L97.222 Non-pressure chronic ulcer of left calf with fat layer exposed; I82.509 Chronic embolism and thrombosis of unspecified deep veins of unspecified lower extremity; Z79.52 Long term (current) use of systemic steroids; Z79.51 Long term (current) use of inhaled steroids | CPT/HCPCS: 15271; A6402; Q4133; Z7610 ==

== ENCOUNTER 2018-04-20 13:08 | Outpatient (CLI) | payer MEDICARE, OTHER | END 2018-04-20 23:59 | disposition home or self-care (01) | LOC: WOU 13:08 | PROVIDERS: ATTEND Podiatrist Foot & Ankle Surgery | DX: I87.2 Venous insufficiency (chronic) (peripheral) (principal); I82.509 Chronic embolism and thrombosis of unspecified deep veins of unspecified lower extremity; Z79.51 Long term (current) use of inhaled steroids; Z79.52 Long term (current) use of systemic steroids; L97.222 Non-pressure chronic ulcer of left calf with fat layer exposed | CPT/HCPCS: 11042; A6402; Z7610 ==

== ENCOUNTER 2018-05-01 14:30 | Outpatient (CLI) | payer MEDICARE, OTHER | END 2018-05-01 23:59 | disposition home or self-care (01) | LOC: WOU 14:30 | PROVIDERS: ATTEND Podiatrist Foot & Ankle Surgery | DX: I87.2 Venous insufficiency (chronic) (peripheral) (principal); L97.822 Non-pressure chronic ulcer of other part of left lower leg with fat layer exposed; I89.0 Lymphedema, not elsewhere classified; L90.5 Scar conditions and fibrosis of skin | CPT/HCPCS: A6402; G0463; Z7610 ==

== ENCOUNTER 2019-01-01 12:30 | Outpatient (CLI) | payer MEDICARE, OTHER, MEDICAID ==
[~2019-01-01 12:30] MED LIST changes: -AMLO1CAP10 PO; +AMLO1CAP93 PO
== END 2019-01-01 23:59 | disposition home or self-care (01) ==
LOC: VASLAB 12:30
PROVIDERS: ATTEND Surgery Vascular Surgery
DX: Z86.718 Personal history of other venous thrombosis and embolism (principal); Z79.01 Long term (current) use of anticoagulants; I48.91 Unspecified atrial fibrillation; R60.0 Localized edema
CPT/HCPCS: G0463

== ENCOUNTER 2019-01-03 09:30 | Outpatient (CLI) | payer MEDICARE, OTHER, MEDICAID | END 2019-01-03 23:59 | disposition home or self-care (01) | LOC: WOU 09:30 | PROVIDERS: ATTEND Surgery Vascular Surgery | DX: I82.532 Chronic embolism and thrombosis of left popliteal vein (principal); Z79.01 Long term (current) use of anticoagulants | CPT/HCPCS: 93970-TC ==

== ENCOUNTER 2019-06-19 17:21 | Inpatient (IN) | payer MEDICARE, OTHER ==
[~2019-06-19] VITALS: Ht 175.3 cm; Wt 91.2 kg
[~2019-06-19 17:21] MED LIST changes: -CLON0.5T12 PO; +CLON0.5T4 PO; -MECL-102 PO; +MECL-159 PO
[2019-06-19] MEDS ORDERED: ALBUTEROL FS 2.5 MG/3 ML VIAL.NEB ONE (17:47)
[2019-06-19] MEDS ORDERED: IPRATROPIUM NEB FS 0.5 MG/2.5 ML AMPUL.NEB ONE (17:47)
[2019-06-19] MEDS ORDERED: methylPREDNISolone SOD SUCC 125 MG/2ML VIAL ONE (17:53)
[2019-06-19 17:57] LABS: BASOPHILS % (AUTO) 0.4 % (0.0-2.0); EOSINOPHILS % (AUTO) 0.3 % (0.0-6.0); HEMATOCRIT 36 % (39-51); LYMPHOCYTES % (AUTO) 8.4 % (20.0-44.0); MEAN CORPUSCULAR HGB CONC 31 g/dl (31.0-36.0); MEAN CORPUSCULAR VOLUME 85 fL (80-96); MONOCYTES # (AUTO) 1.3 /CMM (0.1-1.30); MONOCYTES % (AUTO) 10.2 % (2.0-12.0); NEUTROPHILS % (AUTO) 80.7 % (43.0-81.0); PLATELET COUNT (AUTO) 475 /CMM (150-450); RED BLOOD CELL COUNT(AUTO) 4.19 MIL/uL (4.5-6.0); WHITE BLOOD COUNT (AUTO) 12.3 K/uL (4.3-11.0)
[2019-06-19] MEDS ORDERED: ALBUTEROL FS 2.5 MG/3 ML VIAL.NEB CONTNEB ONE (18:00)
[2019-06-19] MEDS ORDERED: methylPREDNISolone SOD SUCC 125 MG/2ML VIAL IV ONE (18:00)
[2019-06-19] MEDS ORDERED: IPRATROPIUM NEB FS 0.5 MG/2.5 ML AMPUL.NEB NEB ONE (18:00)
[2019-06-19 18:09] LABS: BILIRUBIN,TOTAL 0.4 mg/dL (0.2-1.0); CALCIUM, SERUM 8.8 mg/dL (8.5-10.1); CARBON DIOXIDE 27 mmol/L (21-32); CHLORIDE 101 mmol/L (98-107); CREATININE 1.5 mg/dL (0.6-1.3); GLUCOSE 115 mg/dL (74-106); POTASSIUM 4.6 mmol/L (3.5-5.1); SODIUM SERUM 135 mmol/L (136-145); UREA NITROGEN, BLOOD 33 mg/dL (7-18)
[2019-06-19 18:10] LABS: ALANINE AMINOTRANSFERASE 43 U/L (12-78); ALBUMIN 3.3 g/dL (3.4-5.0); ALKALINE PHOSPHATASE 99 U/L (46-116); ASPARTATE AMINOTRANSFERASE 27 U/L (15-37); BILIRUBIN,DIRECT 0.1 mg/dL (0.0-0.2); TOTAL PROTEIN, SERUM 6.8 g/dL (6.4-8.2)
--- NOTE | 2019-06-19 19:12 | NUR ---
PT RECEIVED FROM ROSEY RANDOLPH FOR YOUSUF. PT IN BED AWAKE ALERT AND ORIENTED. ON BREATHING TX.
--- NOTE | 2019-06-19 19:19 | NUR ---
Transfer care report to Jose CURRIE
[2019-06-19] MEDS ORDERED: CEFTRIAXONE 1GM BAG (ER ONLY) 50 ML IV ONE (19:58)
[2019-06-19] MEDS ORDERED: CEFTRIAXONE 1 G in IV D5W 50 ML IV ONE (20:00)
[2019-06-19] MEDS ORDERED: AZITHROMYCIN 500 MG in IV D5W 250 ML IV ONE (20:00)
--- NOTE | 2019-06-19 20:05 | NUR ---
CALLED HOUSE SUP FOR TELE BED
[2019-06-19] MEDS ORDERED: IPRATROPIUM BROMIDE 14 GM INHALER (or 12.9 GM) IH SCH (20:30)
[2019-06-19] MEDS ORDERED: MAGNESIUM HYDROXIDE 30 ML UDC PO PRN (20:30)
[2019-06-19] MEDS ORDERED: MAG HYDROX/AL HYDROX/SIMETH 30 ML UDC PO PRN (20:30)
[2019-06-19] MEDS ORDERED: Z GUARD REMEDY 2 OZ OINT TP PRN (20:30)
[2019-06-19] MEDS ORDERED: ONDANSETRON HCL/PF 4 MG/2 ML VIAL IVP PRN (20:30)
[2019-06-19] MEDS ORDERED: ACETAMINOPHEN 325 MG TABLET PO PRN (20:30)
--- NOTE | 2019-06-19 20:36 | NUR ---
CALLED TO GIVE REPORT, ROOM NOT READY AT THIS TIME
--- NOTE | 2019-06-19 20:59 | NUR ---
REPORT GIVEN TO ROSEY GOODMAN FOR [employer]SUF.
[2019-06-19] MEDS ORDERED: TRAMADOL HCL 50 MG TABLET PO PRN (21:00)
[2019-06-19] MEDS ORDERED: ENOXAPARIN SODIUM 30 MG/0.3 ML DISP.SYRIN SQ SCH (21:00)
[2019-06-19] MEDS ORDERED: MECLIZINE HCL 25 MG TABLET PO PRN (21:00)
[2019-06-19 21:10] VITALS: BP 123/55
--- NOTE | 2019-06-19 21:18 | NUR ---
PT TRANSPORTED TO UNIT ON [facility] WITH EMT AND RN AT BEDSIDE W/ ACLS PROTOCOL. NAD NOTED DURING TRANSPORT. PT TRANSFERRED FROM [facility] TO BED ON HIS OWN WITHOUT ASSIST
--- NOTE | 2019-06-19 21:30 | NUR ---
RURAL SOCIOLOGIST ADMISSION NOTES RECEIVED PATIENT FROM ER VIA [facility]. DX. COPD EXACERBATION. PATIENT IS ALERT AND ORIENTED X4, VERBALLY RESPONSIVE, ABLE TO MAKE NEEDS KNOWN. NEW ZEALANDER SPEAKER, BUT CAN SPEAK AND UNDERSTAND SAMOAN. AT BEDSIDE. BREATHING EVEN, BUT LABORED. SOB WITH ACTIVITY. WHEEZING AUDIBLE. REMAINS ON 2LPM NC. DENIES PAIN OR DISCOMFORT. DENIES N/V. IV ON RIGHT AC INTACT AND PATENT. THERE IS EDEMA NOTED ON THE BLE, MORE PROMINENT ON THE LEFT FOOT. SKIN ASSESSMENT RENDERED WITH PICTURES TAKEN AND PLACED IN CHART. BELONGINGS ACCOUNTED FOR - WILL TAKE MEDICATIONS HOME. PATIENT IS AMBULATORY WITH A STEADY GAIT, HOWEVER INSTRUCTED TO CALL FOR HELP IF NEEDING TO GO TO BATHROOM. ORIENTED TO THE USE OF UNIT AMENITIES. INSTRUCTED ON THE USE OF CALL LIGHT. BED ON LOWEST LOCKED POSITION. WILL CONTINUE TO MONITOR.
[2019-06-19] MEDS: MONTELUKAST SODIUM (10MG) 10 MG TABLET PO SCH (22:15)
[2019-06-19] MEDS: AMLODIPINE BESYLATE 10 MG TABLET PO SCH (22:15)
[2019-06-19] MEDS: TAMSULOSIN 0.4 MG CAP.SR.24H PO SCH (22:15)
[2019-06-19] MEDS: DUTASTERIDE (0.5 MG) 0.5 MG CAPSULE PO SCH (22:15)
[2019-06-19] MEDS: GUAIFENESIN/D-METHORPHAN HB 5 ML UDC PO SCH (22:15)
[2019-06-19] MEDS: GABAPENTIN 300 MG CAPSULE PO SCH (22:16)
[2019-06-19] MEDS: ALBUTEROL SULFATE 2 MG TABLET PO SCH (22:50)
[2019-06-19] MEDS: IPRATROPIUM NEB FS 0.5 MG/2.5 ML AMPUL.NEB NEB SCH (23:41)
[2019-06-20] VITALS (23 sets, daily range): BP systolic 105–158; BP diastolic 43–74
[2019-06-20] MEDS: ALBUTEROL FS 2.5 MG/0.5 ML VIAL.NEB NEB SCH ×6 (01:30→19:37)
[2019-06-20] MEDS: GUAIFENESIN/D-METHORPHAN HB 5 ML UDC PO SCH ×4 (03:33→21:13)
[2019-06-20] MEDS: IPRATROPIUM NEB FS 0.5 MG/2.5 ML AMPUL.NEB NEB SCH ×6 (04:19→22:56)
[2019-06-20 04:57] LABS: ABG BASE EXCESS -1.4 mmol/L; ABG OXYGEN SATURATION 89.3 % (92.0-98.5); ABG PCO2 58.6 mmHg (35.0-45.0); ABG PH 7.269 (7.350-7.450); ABG PO2 62.4 mmHg (75.0-100.0); AaDO2 68.1 mmHg; COHb 0.6 % (0.5-1.5); MetHb 0.4 % (0.0-1.5); O2Hb 88.4 % (94.0-97.0); SITE, ABG Right Radial; VENT MODE, BG NASAL CANNULA 28%
--- NOTE | 2019-06-20 05:36 | NUR ---
CTRS RCD PT FROM 3W FOR BIPAP; PT IS LETHARGIC AT THIS TIME. NSR ON MONITOR. CONTINUE TO MONITOR.
--- NOTE | 2019-06-20 05:41 | NUR ---
HAND I TUBE BENDER NOTES 0410 - PATIENT NOTED WITH AUDIBLE SNORING MORE LOUDER THAN USUAL. BREATHING STILL LABORED. RR 22. O2SAT 91-92% ON 2LPM NC. SR ON TELE. TRIED TO WAKE PATIENT UP BUT WOULD ONLY OPEN EYES AND FALL RIGHT BACK TO SLEEP. ATTEMPTED MULTIPLE TIMES TO WAKE PATIENT UP BUT STILL APPEARS LETHARGIC. PRIOR TO THAT, ABOUT AN HOUR BEFORE, PATIENT WAS ABLE TO WAKE UP FOR SCHEDULED MEDICATION AND USED URINAL AND BE ABLE TO SPEAK IN FULL SENTENCES. 0425 - PAGED GUZMAN MONTOYA AND UPDATED OF PATIENT'S CONDITION AND SUGGESTED FOR AN ABG. PER GUZMAN MONTOYA, OK TO PROCEED WITH ABG. 0500 - RECEIVED RESULTS FOR ABG AND SENT TO GUZMAN MONTOYA. PER GUZMAN MONTOYA, SEND PATIENT TO ICU FOR BIPAP.
--- NOTE | 2019-06-20 06:00 | NUR ---
ICU/RN- RECEIVED PT. FROM ROSEY BRUMFIELD. PT. NOW AWAKE, ALERT, EXPRESSIVE OF NEEDS. FOLLOWS SIMPLE COMMANDS. ON BIPAP, NOT IN ANY DISTRESS.
[2019-06-20 06:32] LABS: BASOPHILS % (AUTO) 0.1 % (0.0-2.0); HEMATOCRIT 34 % (39-51); HEMOGLOBIN 10.7 g/dL (13.5-17.5); LYMPHOCYTES # (AUTO) 0.2 /CMM (0.8-4.8); LYMPHOCYTES % (AUTO) 2.3 % (20.0-44.0); MEAN CORPUSCULAR HGB CONC 32 g/dl (31.0-36.0); MEAN CORPUSCULAR VOLUME 84 fL (80-96); MONOCYTES # (AUTO) 0.1 /CMM (0.1-1.30); MONOCYTES % (AUTO) 0.8 % (2.0-12.0); NEUTROPHILS # (AUTO) 8.3 /CMM (1.8-8.9); NEUTROPHILS % (AUTO) 96.8 % (43.0-81.0); PLATELET COUNT (AUTO) 391 /CMM (150-450); RED BLOOD CELL COUNT(AUTO) 4.02 MIL/uL (4.5-6.0); WHITE BLOOD COUNT (AUTO) 8.6 K/uL (4.3-11.0)
[2019-06-20 07:02] LABS: CALCIUM, SERUM 8.3 mg/dL (8.5-10.1); CARBON DIOXIDE 29 mmol/L (21-32); CHLORIDE 102 mmol/L (98-107); CREATININE 1.6 mg/dL (0.6-1.3); GLUCOSE 225 mg/dL (74-106); MAGNESIUM 2.4 mg/dL (1.8-2.4); PHOSPHORUS 4.5 mg/dL (2.5-4.9); POTASSIUM 5.6 mmol/L (3.5-5.1); SODIUM SERUM 133 mmol/L (136-145); UREA NITROGEN, BLOOD 38 mg/dL (7-18)
[2019-06-20 07:06] LABS: CHOLESTEROL 159 mg/dL (<200); HDL CHOLESTEROL 68 mg/dL (40-60); LDL 77 mg/dL (0-99); THYROID STIMULATING HORMONE 0.415 uIU/mL (0.358-3.74); TRIGLYCERIDES 31 mg/dL (30-150)
[2019-06-20] MEDS ORDERED: IV NS 0.9% 1,000 ML IV PRN (07:45)
--- NOTE | 2019-06-20 07:53 | NUR ---
OFFICE CASHIER NOTE RECEIVED PATIENT IN BED , ALERT ORIENTED ON BIPAP SETTING ORDERED ON TELE MONITOR SR , WITH SLIGHT SOB NOTED AT THIS TIME, AWAKE ALERT , ORIENTED X3 . RT AC HL INTACT AND FLUSHED WELL . PLAN OF CARE DISCUSSED WITH PATIENT, WITH CHEST CONGESTION UPON AUSCULTATION, BOTH LEG WITH EDEMA ,WILL KEEP ELEVATED TOLERATED , BED IN LOWEST AND LOCKED POSITION, CALL LIGHT WITHIN REACH. WILL MONITOR
--- NOTE | 2019-06-20 08:10 | NUR ---
HOSPITAL WELLNESS COORDINATOR NOTE BIPAP IS REMOVED FOR NOW .PLACED ON 2L MC .HAVING BREAKFAST. WILL MONITOR
[2019-06-20] MEDS: PANTOPRAZOLE 40 MG TABLET.DR PO SCH (08:14)
[2019-06-20] MEDS: methylPREDNISolone SOD SUCC 40 MG/ML VIAL IV SCH ×2 (08:14→16:04)
--- NOTE | 2019-06-20 08:30 | NUR ---
NURSE COORDINATOR NOTE SPOKE WITH DR OJEDA OPERATIONS SUPPORT REPRESENTATIVE NOTIFIED THAT PATIENT HAS CHEST CONGESTION, ORDERED ABG
[2019-06-20] MEDS ORDERED: TIOTROPIUM BROMIDE 6 CAP/BOX CAP.W.DEV IH SCH (09:00)
[2019-06-20] MEDS ORDERED: FUROSEMIDE 40 MG/4 ML VIAL IV ONE (09:00)
--- NOTE | 2019-06-20 09:00 | NUR ---
REFERRAL MANAGEMENT LIAISON NOTE ABG DONE REPORTED TO DR OJEDA WITH RESULT NO NEW ORDER AT THIS TIME , WILL CONT ON LV SAT NOW 95%
[2019-06-20 09:27] LABS: ABG BASE EXCESS -0.8 mmol/L; ABG OXYGEN SATURATION 94.9 % (92.0-98.5); ABG PCO2 49.3 mmHg (35.0-45.0); ABG PH 7.332 (7.350-7.450); ABG PO2 80.9 mmHg (75.0-100.0); AaDO2 38.8 mmHg; COHb 0.4 % (0.5-1.5); MetHb 0.5 % (0.0-1.5); SITE, ABG Right Radial; VENT MODE, BG nasal cannula
--- NOTE | 2019-06-20 09:52 | NUR ---
CLEANER WALL NOTE DR MYERS NOTIFIED THAT K 5.6 BUN 38 CREAT 1.6 ORDERED LASIX TIME ONE, ORDER CARRIED OUT ALSO OK TO STOP IVF , AWARE THAT PATIENT TAKE PO WELL
--- NOTE | 2019-06-20 09:56 | NUR ---
ELEVATOR EXAMINER AND ADJUSTER NOTE CALLED TO PHARMACY NOTIFIED THAT PATIENT NEED TAMBOCOR FOR 9 AM STATED THAT WILL BRING SOON,CALLED X3
[2019-06-20] MEDS: FLECAINIDE ACETATE (100 MG) 100 MG TABLET PO SCH ×2 (10:14→16:17)
--- NOTE | 2019-06-20 12:25 | NUR ---
HOOKER UP NOTE SITTING UP ON EDGE OF BED, HAVING LUNCH , ALL MEDS ATTENDED
--- NOTE | 2019-06-20 14:06 | NUR ---
SONOSCOPE OPERATOR NOTES PHYSICAL THERAPY AT BEDSIDE, PATIENT ABLE TO AMBULATE USING FWW WITH MINIMAL ASSISTANCE WITH SLIGHT SOB NOTED. WILL CONTINUE TO MONITOR.
--- NOTE | 2019-06-20 14:38 | NUR ---
BUNCH MAKER HAND NOTES PATIENT C/O LEAVING HIS SHOES IN THE [facility] DEPARTMENT, CALLED TO THE UNIT AND SPOKE WITH CHARGE NURSE HURST AND UNABLE TO LOCATE AT THIS TIME. PER CHARGE NURSE HURST STATED, "WILL CONTINUE TO CHECK." Addendum: 06/20/19 at 1506 by YAYA CABRAL RN MED [facility]PART[facility]
[2019-06-20] MEDS: RIVAROXABAN 15 MG TABLET PO SCH (16:18)
[2019-06-20] MEDS ORDERED: Cyclosporine (Restasis) 1 DROP EACHEYE SCH (17:00)
[2019-06-20] MEDS: AZITHROMYCIN 250 MG TABLET PO SCH (17:18)
--- NOTE | 2019-06-20 17:22 | NUR ---
CLUTCH OPERATOR NOTE UP ON EDGE OF BED, HAVING DINNER, ABLE TO EAT SELF, ALL MEEDS ATTENDED
--- NOTE | 2019-06-20 18:59 | NUR ---
CLAIMS CONSULTANT NOTE ALL NEEDS ATTENDED ENDORSED TO RN NIGHTS SHIFT TO CHECK HIS LOST SHOES
--- NOTE | 2019-06-20 19:30 | NUR ---
[employer] CONSULTANT: PT RECEIVED ALERT AND AWAKE, ABLE TO TALK AND MAKE NEEDS KNOWN. ON 2L 02 VIA NC WT 02 SAT 92% AND ABOVE. DAY SHIFT RN ABLE TO RETRIEVE ALL HIS BELONGINGS FROM MED SURG FLOOR. NO COMPLAINTS AT THIS TIME. NSR ON BLOCKING MACHINE OPERATOR SECOND. HOB AT 45 DEGREES, BED IN LOW POSITION AND LOCKED WT SIDE RAILS UP X 2. BED ALARM ACTIVATED, CALL LIGHT WITHIN REACH. WILL CONTINUE TO MONITOR.
[2019-06-20] MEDS: TAMSULOSIN 0.4 MG CAP.SR.24H PO SCH (21:14)
[2019-06-20] MEDS: DUTASTERIDE (0.5 MG) 0.5 MG CAPSULE PO SCH (21:14)
[2019-06-20] MEDS: GABAPENTIN 300 MG CAPSULE PO SCH (21:14)
[2019-06-20] MEDS: AMLODIPINE BESYLATE 10 MG TABLET PO SCH (21:15)
[2019-06-20] MEDS: MONTELUKAST SODIUM (10MG) 10 MG TABLET PO SCH (21:15)
[2019-06-20] MEDS: ALBUTEROL SULFATE 2 MG TABLET PO SCH (21:15)
[2019-06-21] VITALS (21 sets, daily range): BP systolic 112–158; BP diastolic 43–69
[2019-06-21] MEDS: clonazePAM 0.5 MG TABLET PO PRN (00:23)
--- NOTE | 2019-06-21 01:30 | NUR ---
ENTERPRISE MOBILITY ARCHITECT: REASSESSED AFTER GIVEN KLONOPIN FOR INSOMNIA WT GOOD EFFECT. PT ASLEEP AT THIS TIME WT NO ACUTE DISTRESS. REMAIN NSR ON APARTMENT COMMUNITY MANAGER. 02 SAT 92% AND ABOVE ON 2L 02 VIA NC. WILL CONTINUE TO MONITOR.
[2019-06-21] MEDS ORDERED: GUAIFENESIN/D-METHORPHAN HB 5 ML UDC ONE (03:16)
[2019-06-21] MEDS: GUAIFENESIN/D-METHORPHAN HB 5 ML UDC PO SCH ×4 (03:20→20:55)
[2019-06-21] MEDS: IPRATROPIUM NEB FS 0.5 MG/2.5 ML AMPUL.NEB NEB SCH ×6 (03:28→23:41)
[2019-06-21 04:48] LABS: HEMATOCRIT 31 % (39-51); HEMOGLOBIN 9.8 g/dL (13.5-17.5); LYMPHOCYTES # (AUTO) 0.4 /CMM (0.8-4.8); LYMPHOCYTES % (AUTO) 2.7 % (20.0-44.0); MEAN CORPUSCULAR HGB CONC 32 g/dl (31.0-36.0); MEAN CORPUSCULAR VOLUME 85 fL (80-96); MONOCYTES # (AUTO) 0.6 /CMM (0.1-1.30); MONOCYTES % (AUTO) 4.5 % (2.0-12.0); NEUTROPHILS # (AUTO) 12.9 /CMM (1.8-8.9); NEUTROPHILS % (AUTO) 92.8 % (43.0-81.0); PLATELET COUNT (AUTO) 421 /CMM (150-450); RED BLOOD CELL COUNT(AUTO) 3.66 MIL/uL (4.5-6.0); WHITE BLOOD COUNT (AUTO) 13.9 K/uL (4.3-11.0)
[2019-06-21 05:02] LABS: ALANINE AMINOTRANSFERASE 35 U/L (12-78); ALBUMIN 2.6 g/dL (3.4-5.0); ALKALINE PHOSPHATASE 77 U/L (46-116); ASPARTATE AMINOTRANSFERASE 17 U/L (15-37); BILIRUBIN,TOTAL 0.1 mg/dL (0.2-1.0); CARBON DIOXIDE 30 mmol/L (21-32); CHLORIDE 103 mmol/L (98-107); CREATININE 1.7 mg/dL (0.6-1.3); GLUCOSE 178 mg/dL (74-106); MAGNESIUM 2.5 mg/dL (1.8-2.4); POTASSIUM 5.5 mmol/L (3.5-5.1); SODIUM SERUM 138 mmol/L (136-145); TOTAL PROTEIN, SERUM 5.7 g/dL (6.4-8.2); UREA NITROGEN, BLOOD 49 mg/dL (7-18)
--- NOTE | 2019-06-21 06:24 | NUR ---
JUNIOR LINUX SYSTEMS ADMINISTRATOR: REMAINED ALERT AND AWAKE. ON 2L 02 VIA NC WT NO ACUTE DISTRESS. NO C/O PAIN OR EVIDENCE OF DISCOMFORT. SR WT BBB WT INVERTED T WAVE ON ESTHETICIAN/SPA COORDINATOR. AFEBRILE. ALL NEEDS MET. SAFETY PRECAUTION NOTED AT ALL TIMES.
[2019-06-21] MEDS: ALBUTEROL FS 2.5 MG/0.5 ML VIAL.NEB NEB SCH ×4 (07:26→19:59)
--- NOTE | 2019-06-21 07:43 | NUR ---
TRUCK TRAILER FINAL INSPECTOR OPENING NOTES PT IS AWAKE AND ALERT DENIES SOB OR PAIN AT PRESENT MOMENT. PT IS AWAITING TO SPEAK WITH DR. FRANCO ABOUT HIS HEART MEDICATION THAT HE IS NOT ABLE TO RECALL AT THIS PRIOR MOMENT. BED IS LOCKED AND IN LOWEST POSITION WITH CALL LIGHT IN REACH. BEDSIDE MONITORING EQUIPMENT FUNCTIONING.
--- NOTE | 2019-06-21 07:52 | NUR ---
WOUND CARE CONSULT: PT PRESENTS WITH SCARRING TO LEFT LOWER LEG AND RT KNEE, PRESENT ON ADMISSION. PT STATES HAD SURGERY IN THE PAST. PT IS CONTINENT AND ABLE TO TURN/REPOSITION IN BED. WILL SEE PRN. RECOMMENDATIONS MADE FOR SKIN PROTECTION AND DISCUSSED WITH NURSING STAFF (MOISTURIZER CREAM). MD IN AGREEMENT WITH PLAN OF CARE.
[2019-06-21] MEDS: PANTOPRAZOLE 40 MG TABLET.DR PO SCH (08:51)
[2019-06-21] MEDS: methylPREDNISolone SOD SUCC 40 MG/ML VIAL IV SCH ×2 (08:52→17:19)
[2019-06-21] MEDS: FLECAINIDE ACETATE (100 MG) 100 MG TABLET PO SCH ×2 (08:52→17:20)
[2019-06-21] MEDS ORDERED: SODIUM POLYSTYRENE SULF. PWD 15 GM UDC PO ONE (10:30)
[2019-06-21] MEDS: MINERAL OIL/PETROLATUM,WHITE 120 GM JAR TP SCH (10:57)
[2019-06-21] MEDS: AZITHROMYCIN 250 MG TABLET PO SCH (17:20)
[2019-06-21] MEDS: RIVAROXABAN 15 MG TABLET PO SCH (17:21)
--- NOTE | 2019-06-21 18:11 | NUR ---
REPORT CALLED TO AL[facility] IN [facility] FOR [facility]. PT WILL BE TAKEN BY BED.
--- NOTE | 2019-06-21 18:42 | NUR ---
RECEIVED PATIENT AWAKE , ALERT AND ORIENTED X4 , NO DISTRESS NOTED, VS ARE STABLE AND WITHIN BASE LINE. ON O2 2L VIA NC SATURATING ABOVE 95%. PATIENT AMBULATORY WITH ASSISTANCE AND WALKER. PATIENT ORIENTED TO THE UNIT AND EDUCATED TO USE CALL LIGHT. SAFETY PRECAUTIONS IMPLEMENTED. IV LINE FLUSHING WELL AND H/L. WILL ENDORSE TO NEXT SHIFT
--- NOTE | 2019-06-21 18:45 | NUR ---
PT TRANSFERRED TO [facility]IT RM [id number]. ALBERT CURRIE RECEIVED REPORT FRO YOUSUF
--- NOTE | 2019-06-21 19:00 | NUR ---
RN OPENING NOTES: BEDSIDE REPORT GIVEN FROM AM SHIFT NURSE. PATIENT WAS TRANSFERRED FROM ICU TO [facility]. PATIENT AWAKE AND VERBALLY RESPONSIVE. NO RESPIRATORY DISTRESS. NO PAIN. ON O2 AT 2LPM VIA NC, SATTING 97%. SAFETY PRECAUTIONS IMPLEMENTED. BED LOCKED AND IN LOWEST POSITION. IV ACCESS (R) AC #18 INTACT, PATENT, AND FLUSHING WELL. SALINE LOCKED. 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 CALL LIGHT WITHIN REACH. WILL CONT. TO MONITOR.
[2019-06-21] MEDS: DUTASTERIDE (0.5 MG) 0.5 MG CAPSULE PO SCH (21:00)
[2019-06-21] MEDS: AMLODIPINE BESYLATE 10 MG TABLET PO SCH (21:00)
[2019-06-21] MEDS: GABAPENTIN 300 MG CAPSULE PO SCH (21:00)
[2019-06-21] MEDS: TAMSULOSIN 0.4 MG CAP.SR.24H PO SCH (21:00)
[2019-06-21] MEDS: MONTELUKAST SODIUM (10MG) 10 MG TABLET PO SCH (21:00)
[2019-06-21] MEDS: ALBUTEROL SULFATE 2 MG TABLET PO SCH (23:53)
[2019-06-22] VITALS: BP 126/53
[2019-06-22] MEDS: GUAIFENESIN/D-METHORPHAN HB 5 ML UDC PO SCH ×4 (03:25→20:56)
[2019-06-22] MEDS: IPRATROPIUM NEB FS 0.5 MG/2.5 ML AMPUL.NEB NEB SCH ×6 (03:44→23:41)
[2019-06-22 04:00] VITALS: BP 126/55
--- NOTE | 2019-06-22 07:00 | NUR ---
RN CLOSING NOTES: HAND OFF REPORT GIVEN TO AM SHIFT NURSE. PATIENT AWAKE AND VERBALLY RESPONSIVE. NO RESPIRATORY DISTRESS. NO PAIN. ENDORSED TO AM SHIFT NURSE FOR CONTINUITY OF CARE.
--- NOTE | 2019-06-22 07:41 | NUR ---
RN OPENING NOTES PT IS A&OX4 DENIES PAIN OR SOB AT PRESENT MOMENT. PT HAS A 18 GAUGE IV IN RAC SALINE LOCK. PT IS ST 108 ON TELE MONITOR. PT IS ON 2L O2 VIA NC. BED IS LOCKED AND IN LOWEST POSITION WITH CALL LIGHT IN REACH WILL CONTINUE TO MONITOR.
[2019-06-22 08:00] VITALS: BP 141/54
[2019-06-22] MEDS: ALBUTEROL FS 2.5 MG/0.5 ML VIAL.NEB NEB SCH ×4 (08:09→19:54)
[2019-06-22] MEDS: MINERAL OIL/PETROLATUM,WHITE 120 GM JAR TP SCH (08:11)
[2019-06-22] MEDS: PANTOPRAZOLE 40 MG TABLET.DR PO SCH (08:11)
[2019-06-22] MEDS: methylPREDNISolone SOD SUCC 40 MG/ML VIAL IV SCH ×2 (08:12→17:05)
[2019-06-22 08:50] LABS: BASOPHILS % (AUTO) 0.2 % (0.0-2.0); HEMATOCRIT 32 % (39-51); HEMOGLOBIN 10.2 g/dL (13.5-17.5); LYMPHOCYTES # (AUTO) 0.6 /CMM (0.8-4.8); LYMPHOCYTES % (AUTO) 3.9 % (20.0-44.0); MEAN CORPUSCULAR HGB CONC 32 g/dl (31.0-36.0); MEAN CORPUSCULAR VOLUME 84 fL (80-96); MONOCYTES # (AUTO) 0.7 /CMM (0.1-1.30); MONOCYTES % (AUTO) 4.6 % (2.0-12.0); NEUTROPHILS # (AUTO) 14.7 /CMM (1.8-8.9); NEUTROPHILS % (AUTO) 91.3 % (43.0-81.0); PLATELET COUNT (AUTO) 506 /CMM (150-450); RED BLOOD CELL COUNT(AUTO) 3.85 MIL/uL (4.5-6.0); WHITE BLOOD COUNT (AUTO) 16.1 K/uL (4.3-11.0)
[2019-06-22 08:57] LABS: CALCIUM, SERUM 7.9 mg/dL (8.5-10.1); CARBON DIOXIDE 32 mmol/L (21-32); CHLORIDE 104 mmol/L (98-107); CREATININE 1.6 mg/dL (0.6-1.3); GLUCOSE 185 mg/dL (74-106); POTASSIUM 4.9 mmol/L (3.5-5.1); SODIUM SERUM 140 mmol/L (136-145); UREA NITROGEN, BLOOD 50 mg/dL (7-18)
[2019-06-22 09:04] LABS: ALANINE AMINOTRANSFERASE 33 U/L (12-78); ALBUMIN 2.7 g/dL (3.4-5.0); ALKALINE PHOSPHATASE 72 U/L (46-116); ASPARTATE AMINOTRANSFERASE 13 U/L (15-37); BILIRUBIN,TOTAL 0.2 mg/dL (0.2-1.0); MAGNESIUM 2.7 mg/dL (1.8-2.4); TOTAL PROTEIN, SERUM 5.6 g/dL (6.4-8.2)
[2019-06-22] MEDS: FLECAINIDE ACETATE (100 MG) 100 MG TABLET PO SCH ×2 (09:06→17:05)
[2019-06-22 10:13] LABS: LYMPHOCYTES % (MANUAL) 5 % (16-48); MONOCYTES % (MANUAL) 7 % (0-11.0); MYELOCYTES % 1 % (0-0); NEUTROPHILS % (MANUAL) 87 (42-76)
[2019-06-22 12:00] VITALS: BP 133/72
[2019-06-22 16:00] VITALS: BP 140/62
[2019-06-22] MEDS: AZITHROMYCIN 250 MG TABLET PO SCH (17:05)
[2019-06-22] MEDS: RIVAROXABAN 15 MG TABLET PO SCH (17:07)
--- NOTE | 2019-06-22 18:32 | NUR ---
RN CLOSING NOTES WALKED WITH PT AROUND THE UNIT, PT TOLERATED WALKING WITH O2 TANK NEXT TO HIM. PT IS A&OX4 AND IS ABLE TO MAKE NEEDS KNOWN. WILL ENDORSE YOUSUF TO STEAM LOCOMOTIVE FIRER/FIREMAN RN.
[2019-06-22] MEDS: IV NS 0.9% 1,000 ML IV PRN (19:30)
--- NOTE | 2019-06-22 19:30 | NUR ---
RN OPENING NOTES: BEDSIDE REPORT RECEIVED FROM AM SHIFT NURSE. PATIENT AWAKE AND VERBALLY RESPONSIVE. AAOX4. NO RESPIRATORY DISTRESS. ON O2 AT 2LPM VIA NC, TOLERATING WELL. IV ACCESS RIGHT AC #18 INTACT, PATENT, AND FLUSHING WELL RUNNING NS AT 70 MLS/HR ORDERED. SAFETY PRECAUTIONS IMPLEMENTED. BED LOCKED AND IN LOWEST POSITION. CALL LIGHT PLACED WITHIN REACH. WILL CONT. TO MONITOR.
[2019-06-22 20:00] VITALS: BP 129/59
[2019-06-22] MEDS: MONTELUKAST SODIUM (10MG) 10 MG TABLET PO SCH (21:00)
[2019-06-22] MEDS: AMLODIPINE BESYLATE 10 MG TABLET PO SCH (21:00)
[2019-06-22] MEDS: TAMSULOSIN 0.4 MG CAP.SR.24H PO SCH (21:00)
[2019-06-22] MEDS: GABAPENTIN 300 MG CAPSULE PO SCH (21:01)
[2019-06-22] MEDS: DUTASTERIDE (0.5 MG) 0.5 MG CAPSULE PO SCH (21:01)
[2019-06-22] MEDS: ALBUTEROL SULFATE 2 MG TABLET PO SCH (21:01)
[2019-06-23] VITALS: BP 134/52
[2019-06-23] MEDS: GUAIFENESIN/D-METHORPHAN HB 5 ML UDC PO SCH ×4 (03:23→22:01)
[2019-06-23 04:00] VITALS: BP 136/51
[2019-06-23] MEDS: IPRATROPIUM NEB FS 0.5 MG/2.5 ML AMPUL.NEB NEB SCH ×6 (04:14→23:15)
--- NOTE | 2019-06-23 05:06 | NUR ---
RN NOTE: URINALYSIS AND URINE CULTURE ORDERED BY MD WAS AUTO-CANCELLED AFTER 3 DAYS. WILL TRY TO COLLECT URINE SPECIMEN.
[2019-06-23 05:46] LABS: HEMATOCRIT 33 % (39-51); LYMPHOCYTES # (AUTO) 0.3 /CMM (0.8-4.8); LYMPHOCYTES % (AUTO) 1.9 % (20.0-44.0); MEAN CORPUSCULAR HGB CONC 30 g/dl (31.0-36.0); MEAN CORPUSCULAR VOLUME 84 fL (80-96); MONOCYTES % (AUTO) 6.4 % (2.0-12.0); NEUTROPHILS # (AUTO) 14.9 /CMM (1.8-8.9); NEUTROPHILS % (AUTO) 91.7 % (43.0-81.0); PLATELET COUNT (AUTO) 522 /CMM (150-450); RED BLOOD CELL COUNT(AUTO) 3.95 MIL/uL (4.5-6.0); WHITE BLOOD COUNT (AUTO) 16.3 K/uL (4.3-11.0)
[2019-06-23] MEDS: IV NS 0.9% 1,000 ML IV PRN ×3 (06:35→22:00)
[2019-06-23 06:38] LABS: ALANINE AMINOTRANSFERASE 36 U/L (12-78); ALBUMIN 2.7 g/dL (3.4-5.0); ALKALINE PHOSPHATASE 70 U/L (46-116); ASPARTATE AMINOTRANSFERASE 15 U/L (15-37); BILIRUBIN,TOTAL 0.2 mg/dL (0.2-1.0); CALCIUM, SERUM 7.7 mg/dL (8.5-10.1); CARBON DIOXIDE 31 mmol/L (21-32); CHLORIDE 104 mmol/L (98-107); CREATININE 1.5 mg/dL (0.6-1.3); GLUCOSE 181 mg/dL (74-106); MAGNESIUM 2.7 mg/dL (1.8-2.4); PHOSPHORUS 3.4 mg/dL (2.5-4.9); SODIUM SERUM 140 mmol/L (136-145); TOTAL PROTEIN, SERUM 5.4 g/dL (6.4-8.2); UREA NITROGEN, BLOOD 47 mg/dL (7-18)
--- NOTE | 2019-06-23 06:45 | NUR ---
RN CLOSING NOTES: PATIENT AWAKE AND VERBALLY RESPONSIVE. NO RESPIRATORY DISTRESS. NO PAIN. (R) AC #18 INTACT, PATENT, AND FLUSHING WELL RUNNING 70 MLS/HR. SAFETY PRECAUTIONS IMPLEMENTED. BED LOCKED AND IN LOWEST POSITION. URINE SPECIMEN STILL NEEDS TO BE COLLECTED. WILL ENDORSE TO AM SHIFT NURSE. Addendum: 06/23/19 at 0714 by ASHISH YOU RN ENDORSED TO AM SHIFT NURSE FOR URINE COLLECTION.
--- NOTE | 2019-06-23 07:29 | NUR ---
OUTSIDE RIGGER NOTE RECEIVED PATIENT IN BED, AWAKE ALERT , ORIENTED X3 , ON TELE MONITOR SR I ST DEGREE AV BLOCK HR 78 , RT AC HL INTACT , BED IN LOWEST AND LOCKED POSITION , PLAN OF CARE DISCUSSED WITH PATIENT, USING URINAL AT THIS TIME , ON IVF ORDERED, NO SOB AT THIS TIME WILL MONITOR CLOSELY
[2019-06-23] MEDS: ALBUTEROL FS 2.5 MG/0.5 ML VIAL.NEB NEB SCH ×4 (07:33→19:59)
[2019-06-23 08:00] VITALS: BP 145/66
--- NOTE | 2019-06-23 08:00 | NUR ---
ADDICTIONS RECOVERY SPECIALIST NOTE NEW IV HL ON LT AC DWIGHT 22C INSERTED WITH GOOD BLOOD RETURN .NOTED THAT RT AC IV SITE WITH SWELLING AND REDNESS ,KEEP ELEVATED , WILL MONITOR
[2019-06-23] MEDS: PANTOPRAZOLE 40 MG TABLET.DR PO SCH (08:30)
[2019-06-23] MEDS: methylPREDNISolone SOD SUCC 40 MG/ML VIAL IV SCH ×2 (08:30→16:03)
[2019-06-23] MEDS: FLECAINIDE ACETATE (100 MG) 100 MG TABLET PO SCH ×2 (08:31→16:43)
[2019-06-23] MEDS: MINERAL OIL/PETROLATUM,WHITE 120 GM JAR TP SCH (08:31)
--- NOTE | 2019-06-23 08:57 | NUR ---
SENIOR CLINICAL DATA ANALYST NOTE ON BREATHING TX ,SEEN BY DR FRANCO ,WILL F\U
--- NOTE | 2019-06-23 09:28 | NUR ---
ANALOG IC DESIGN ENGINEER NOTE SEEN BY ARMIN KHANNA RN MERIT SYSTEM DIRECTOR AWARE THAT WBC 16.3 K 5.0 STILL WHEEZING UPON AUSCULTATION STATED THAT POSSIBLE D\C HOME TOMORROW WILL F\U
[2019-06-23 10:18] LABS: BAND % (MANUAL) 2 % (0.0-5.0); LYMPHOCYTES % (MANUAL) 2 % (16-48); MONOCYTES % (MANUAL) 3 % (0-11.0); MYELOCYTES % 3 % (0-0); NEUTROPHILS % (MANUAL) 90 (42-76)
--- NOTE | 2019-06-23 11:46 | NUR ---
RAIL OPERATIONS CONTROLLER NOTE SEEN BY DR LOMAS MAGAZINE EDITOR , NO NEW ORDER AT AT HIS TIME
[2019-06-23 12:00] VITALS: BP 151/78
[2019-06-23 12:07] LABS: APPEARANCE,URINE CLEAR (CLEAR); BILIRUBIN,URINE NEGATIVE (NEGATIVE); BLOOD, URINE NEGATIVE Ery/uL (NEGATIVE); COLOR,URINE YELLOW (YELLOW); KETONES,URINE NEGATIVE (NEGATIVE); LEUKOCYTE ESTERASE ,URINE NEGATIVE (NEGATIVE); NITRITE, URINE NEGATIVE (NEGATIVE); PROTEIN,URINE NEGATIVE (NEGATIVE); UGLUCOSE NEGATIVE (NEGATIVE); UROBILINOGEN,URINE 0.2 EU/dL (0.2)
[2019-06-23 16:00] VITALS: BP 147/69
[2019-06-23] MEDS: RIVAROXABAN 15 MG TABLET PO SCH (16:44)
[2019-06-23] MEDS: AZITHROMYCIN 250 MG TABLET PO SCH (17:04)
--- NOTE | 2019-06-23 18:00 | NUR ---
SUBMERSIBLE PILOT NOTE HAVING DINNER ,ABLE TO EAT SELF NOT IN DISTRESS , WILL CONT ON IVF ORDERED, KEEP CLEAN DRY , CALL LIGHT WITHIN REACH
--- NOTE | 2019-06-23 19:09 | NUR ---
television news photographer note sitting at edge of bed ,not in distress, on ivf as ordered
[2019-06-23 20:00] VITALS: BP 147/64
[2019-06-23] MEDS: MONTELUKAST SODIUM (10MG) 10 MG TABLET PO SCH (22:01)
[2019-06-23] MEDS: DUTASTERIDE (0.5 MG) 0.5 MG CAPSULE PO SCH (22:01)
[2019-06-23] MEDS: GABAPENTIN 300 MG CAPSULE PO SCH (22:02)
[2019-06-23] MEDS: AMLODIPINE BESYLATE 10 MG TABLET PO SCH (22:02)
[2019-06-23] MEDS: clonazePAM 0.5 MG TABLET PO PRN (22:02)
[2019-06-23] MEDS: TAMSULOSIN 0.4 MG CAP.SR.24H PO SCH (22:02)
[2019-06-24] VITALS (9 sets, daily range): BP systolic 132–169; BP diastolic 49–67
[2019-06-24] MEDS: ALBUTEROL SULFATE 2 MG TABLET PO SCH ×2 (00:55→21:11)
[2019-06-24] MEDS: IPRATROPIUM NEB FS 0.5 MG/2.5 ML AMPUL.NEB NEB SCH ×6 (03:28→23:51)
[2019-06-24] MEDS: GUAIFENESIN/D-METHORPHAN HB 5 ML UDC PO SCH ×4 (03:42→21:10)
[2019-06-24 06:52] LABS: CALCIUM, SERUM 7.9 mg/dL (8.5-10.1); CREATININE 1.3 mg/dL (0.6-1.3)
[2019-06-24 06:53] LABS: BASOPHILS % (AUTO) 0.1 % (0.0-2.0); HEMATOCRIT 33 % (39-51); HEMOGLOBIN 10.3 g/dL (13.5-17.5); LYMPHOCYTES # (AUTO) 0.5 /CMM (0.8-4.8); MEAN CORPUSCULAR HGB CONC 31 g/dl (31.0-36.0); MEAN CORPUSCULAR VOLUME 84 fL (80-96); MONOCYTES # (AUTO) 1.1 /CMM (0.1-1.30); MONOCYTES % (AUTO) 6.7 % (2.0-12.0); NEUTROPHILS # (AUTO) 14.7 /CMM (1.8-8.9); NEUTROPHILS % (AUTO) 90.2 % (43.0-81.0); PLATELET COUNT (AUTO) 543 /CMM (150-450); RED BLOOD CELL COUNT(AUTO) 3.96 MIL/uL (4.5-6.0); WHITE BLOOD COUNT (AUTO) 16.3 K/uL (4.3-11.0)
--- NOTE | 2019-06-24 07:05 | NUR ---
RN NOTE RECEIVED PATIENT IN BED, AWAKE ALERT , ORIENTED X3 , ON 2L O2 N/C , NO SOB NOTED, ON TELE SR WITH PVC'S HR IN 80'S , RT AC HL INTACT WITH NS AT 70CC/HR RUNNING , BED IN LOWEST AND LOCKED POSITION , PLAN OF CARE DISCUSSED WITH PATIENT, USING URINAL AT THIS TIME , SR UP x3, CALL LIGHT WITHIN EASY REACH, BED LOCKED AND IN LOWEST POSITION, CONTINUE TO MONITOR.
[2019-06-24] MEDS: ALBUTEROL FS 2.5 MG/0.5 ML VIAL.NEB NEB SCH ×4 (07:58→19:46)
[2019-06-24] MEDS: methylPREDNISolone SOD SUCC 40 MG/ML VIAL IV SCH ×2 (08:27→16:24)
[2019-06-24] MEDS: PANTOPRAZOLE 40 MG TABLET.DR PO SCH (08:27)
[2019-06-24] MEDS: FLECAINIDE ACETATE (100 MG) 100 MG TABLET PO SCH ×2 (08:30→16:25)
[2019-06-24] MEDS: MINERAL OIL/PETROLATUM,WHITE 120 GM JAR TP SCH (08:31)
--- NOTE | 2019-06-24 13:00 | NUR ---
RN NOTES O2 SAT ON 2L AT REST IS 93-94% O2 SAT ON 2L WHILE PT IS UP AND WALKING IS 91-92% .
[2019-06-24] MEDS: IV NS 0.9% 1,000 ML IV PRN (14:18)
[2019-06-24] MEDS: RIVAROXABAN 15 MG TABLET PO SCH (16:28)
[2019-06-24] MEDS: AZITHROMYCIN 250 MG TABLET PO SCH (17:05)
--- NOTE | 2019-06-24 18:00 | NUR ---
RN NOTES PT IS UP AND WALKING IN THE ROOM AT TIMES , NO SOB NOTED , VSS STABLE, NO SIGNIFICANT CHANGES NOTED ON THIS SHIFT , WILL ENDORSE TO PRESIDENT NURSE FOR CONTINUITY OF CARE.
--- NOTE | 2019-06-24 19:45 | NUR ---
RN NOTE RECEIVED PT IN BED ALERT AND ORIENTED X 3. PT CURRENTLY ON 2L OF O2 VIA NC, NO SOB NOTED. PT ASSISTED WITH USING URINAL AT THIS TIME. NO COMPLAINTS OF PAIN OR DISCOMFORT. BED IN LOWEST POSITION AND LOCKED IN PLACE. WILL MONITOR.
--- NOTE | 2019-06-24 20:24 | NUR ---
BLOOD PRESSURE RECHECKED (152/49)
[2019-06-24] MEDS: DUTASTERIDE (0.5 MG) 0.5 MG CAPSULE PO SCH (21:10)
[2019-06-24] MEDS: GABAPENTIN 300 MG CAPSULE PO SCH (21:10)
[2019-06-24] MEDS: MONTELUKAST SODIUM (10MG) 10 MG TABLET PO SCH (21:11)
[2019-06-24] MEDS: TAMSULOSIN 0.4 MG CAP.SR.24H PO SCH (21:11)
[2019-06-24] MEDS: AMLODIPINE BESYLATE 10 MG TABLET PO SCH (21:11)
[2019-06-25] VITALS: BP 143/53
--- NOTE | 2019-06-25 00:03 | NUR ---
RN NOTE PT CURRENTLY IN BED AWAKE WITHOUT SIGNS OF DISTRESS. NO COMPLAINTS OF PAIN, NO SOB NOTED, CURRENTLY UNDERGOING BREATHING TX WITH RT AT BEDSIDE, CALL LIGHT WITHIN REACH, WILL MONITOR.
[2019-06-25] MEDS: GUAIFENESIN/D-METHORPHAN HB 5 ML UDC PO SCH ×3 (02:00→14:58)
[2019-06-25] MEDS: IPRATROPIUM NEB FS 0.5 MG/2.5 ML AMPUL.NEB NEB SCH ×4 (02:24→15:43)
[2019-06-25] MEDS: ALBUTEROL FS 2.5 MG/0.5 ML VIAL.NEB NEB SCH ×4 (02:24→15:43)
[2019-06-25 04:00] VITALS: BP 149/52
[2019-06-25] MEDS: IV NS 0.9% 1,000 ML IV PRN (04:04)
[2019-06-25 06:18] LABS: BASOPHILS % (AUTO) 0.2 % (0.0-2.0); EOSINOPHILS % (AUTO) 0.1 % (0.0-6.0); HEMATOCRIT 33 % (39-51); HEMOGLOBIN 10.4 g/dL (13.5-17.5); LYMPHOCYTES # (AUTO) 0.4 /CMM (0.8-4.8); LYMPHOCYTES % (AUTO) 2.3 % (20.0-44.0); MEAN CORPUSCULAR HGB CONC 31 g/dl (31.0-36.0); MEAN CORPUSCULAR VOLUME 84 fL (80-96); MONOCYTES # (AUTO) 1.1 /CMM (0.1-1.30); MONOCYTES % (AUTO) 5.9 % (2.0-12.0); NEUTROPHILS # (AUTO) 17.4 /CMM (1.8-8.9); NEUTROPHILS % (AUTO) 91.5 % (43.0-81.0); PLATELET COUNT (AUTO) 522 /CMM (150-450); RED BLOOD CELL COUNT(AUTO) 3.96 MIL/uL (4.5-6.0)
[2019-06-25 06:30] LABS: CALCIUM, SERUM 8.1 mg/dL (8.5-10.1); CREATININE 1.2 mg/dL (0.6-1.3); POTASSIUM 4.9 mmol/L (3.5-5.1)
[2019-06-25 06:57] LABS: BAND % (MANUAL) 5 % (0.0-5.0); LYMPHOCYTES % (MANUAL) 6 % (16-48); METAMYELOCYTES % 3 % (0-0); MONOCYTES % (MANUAL) 5 % (0-11.0); MYELOCYTES % 1 % (0-0); NEUTROPHILS % (MANUAL) 80 (42-76)
--- NOTE | 2019-06-25 07:25 | NUR ---
RN NOTE PT CURRENTLY IN BED SLEEPING WITH HOB ELEVATED. ON 2L OF O2 VIA NC. NO SIGNS OF DISCOMFORT OR ACUTE DISTRESS AT THIS TIME. IVF RUNNING WITHOUT COMPLICATIONS. ON TELE MONITOR SINUS RHTHYM. BED IN LOWEST POSITION. CALL LIGHT WITHIN REACH. ENDORSED TO ONCOMING SHIFT.
--- NOTE | 2019-06-25 07:25 | NUR ---
NAME PLATE STAMPING MACHINE OPERATOR NOTE PATIENT IN BED ,RESTING COMFORTABLY AT THIS TIME, NO SOB NOTED FOR NOW, ON 2L NS , LFA HL INTACT,ON IVF ORDERED, BED IN LOWEST AND LOCKED POSITION ,CALL LIGHT WITHIN REACH , WILL MONITOR, ON TELE MONITOR SR WITH BBB GR 76
[2019-06-25 08:00] VITALS: BP 152/60
[2019-06-25] MEDS: methylPREDNISolone SOD SUCC 40 MG/ML VIAL IV SCH (09:08)
[2019-06-25] MEDS: FLECAINIDE ACETATE (100 MG) 100 MG TABLET PO SCH (09:08)
[2019-06-25] MEDS: MINERAL OIL/PETROLATUM,WHITE 120 GM JAR TP SCH (09:09)
[2019-06-25] MEDS: PANTOPRAZOLE 40 MG TABLET.DR PO SCH (09:09)
--- NOTE | 2019-06-25 10:52 | NUR ---
MS RN NOTE UP ON BED WATCHING A TV, NOT IN DISTRESS, CONT ON IVF ORDERED
[2019-06-25] MEDS ORDERED: AZIT250T13 PO (13:23)
--- NOTE | 2019-06-25 13:51 | NUR ---
MS RN NOTE CHAPIS BORJAS DNP AT BEDSIDE ,OK TO DISCHARGE TO HOME ALSO PER PX WAS GIVEN TO PATIENT BY CHAPIS CALLED TO [facility] PER PATIENT REQUEST, SPOKE WITH MAURY ABOUT NEW PX AZYTHROMAX ,
[2019-06-25 15:00] VITALS: BP 152/60
[2019-06-25 16:00] VITALS: BP 150/60
--- NOTE | 2019-06-25 16:17 | NUR ---
PRIMARY SUBSTANCE ABUSE COUNSELOR NOTE D\C INSTRUCTION GIVEN UNDERSTOOD, HL ON LT FA REMOVED, NO BLEEDING NOTED ,TELE REMOVED BELONGING SIGNED, INSTRUCTED TO F\U WITH DR OJEDA AND PCP AND HOW TO TAKE HOME AND NEW MEDS AND POSSIBLE SIDE EFFECTS , TAKEN TO LOBBY WITH MELT SUPERVISOR WITH STABLE CONDITION W\C, NO NEED O2 WHILE GO HOME, STATED I HAVE O2 AT HOME, NO SOB NOTED WHILE DISCHARGE, SON AT BEDSIDE
--- NOTE | 2019-07-04 10:04 | NUR ---
ms rn note late entry for discharge patient refused to do discharge photo upon discharge stated want to go home , i am ok , patient right is respected. offered x2
== END 2019-06-25 17:00 | disposition home or self-care (01) | DRG 189 ==
LOC: ER 17:22 → TELE 20:16 → ICU 06-20 05:25 → TELE-TD 06-21 18:27 → TELE1 06-22 09:22 → MEDSG1 06-25 09:51
PROVIDERS: ADMIT Registered Nurse; ATTEND Nurse Practitioner Acute Care
PROC: 5A09357 Assistance with Respiratory Ventilation, Less than 24 Consecutive Hours, Continuous Positive Airway Pressure (ICD-10-PCS; principal; 2019-06-20)
DX: J96.21 Acute and chronic respiratory failure with hypoxia (principal); N17.0 Acute kidney failure with tubular necrosis; J44.1 Chronic obstructive pulmonary disease with (acute) exacerbation; J44.0 Chronic obstructive pulmonary disease with (acute) lower respiratory infection; E44.1 Mild protein-calorie malnutrition; E87.1 Hypo-osmolality and hyponatremia; I50.32 Chronic diastolic (congestive) heart failure; D68.59 Other primary thrombophilia; I13.0 Hypertensive heart and chronic kidney disease with heart failure and stage 1 through stage 4 chronic kidney disease, or unspecified chronic kidney disease; J96.22 Acute and chronic respiratory failure with hypercapnia; E87.5 Hyperkalemia; J20.9 Acute bronchitis, unspecified; Z92.3 Personal history of irradiation; Z87.891 Personal history of nicotine dependence; I48.0 Paroxysmal atrial fibrillation; E86.0 Dehydration; D63.8 Anemia in other chronic diseases classified elsewhere; I25.10 Atherosclerotic heart disease of native coronary artery without angina pectoris; D72.829 Elevated white blood cell count, unspecified; D47.3 Essential (hemorrhagic) thrombocythemia; F41.9 Anxiety disorder, unspecified; I45.10 Unspecified right bundle-branch block; Z85.46 Personal history of malignant neoplasm of prostate; F32.9 Major depressive disorder, single episode, unspecified; E66.9 Obesity, unspecified; Z68.29 Body mass index [BMI] 29.0-29.9, adult; N18.9 Chronic kidney disease, unspecified; E88.09 Other disorders of plasma-protein metabolism, not elsewhere classified; Z99.81 Dependence on supplemental oxygen; N40.0 Benign prostatic hyperplasia without lower urinary tract symptoms; K21.9 Gastro-esophageal reflux disease without esophagitis
CPT/HCPCS: 36415; 36600; 71045-TC; 80048-TC; 80053-TC; 80061-TC; 80076-TC; 81000-TC; 82803-TC; 83605-TC; 83735-TC; 84100-TC; 84443-TC; 84484-TC; 85025-TC; 85730-TC; 87040-TC; 87081-TC; 87086-TC; 94762-TC; 94799-TC; 97116-TC; 97530-TC; G0378; J0456; J0696; J1940; J2920; J2930; J7030; J7060

== ENCOUNTER 2021-12-07 13:49 | Inpatient (IN) | payer MEDICARE, OTHER ==
[~2021-12-07] VITALS: Ht 167.6 cm; Wt 87.5 kg
[~2021-12-07 13:49] MED LIST changes: -DUTA0.5C15 PO; +DUTA0.5C37 PO
--- NOTE | 2021-12-07 14:00 | NUR ---
BIBSON C/O R SIDE HEAD PAIN, RLE AND RUE PAIN W BRUISE AND SWELLING "FELL YESTERDAY, I DON'T REMEMBER WHAT HAPPENED". AMBULATORY, AAOX4, IN PAIN 10/24, PLACED ON BED CHANGED TO GOWN.
--- NOTE | 2021-12-07 14:15 | NUR ---
AT BED SIDE
--- NOTE | 2021-12-07 15:15 | NUR ---
PATIENT WENT FOR CT HEAD AND LOWER EXTREMITY VIA [facility]
--- NOTE | 2021-12-07 15:30 | NUR ---
SWAB FOR COVID19 SENT TO LAB
[2021-12-07] MEDS ORDERED: DOCU-141 PO (15:48)
[2021-12-07] MEDS ORDERED: FURO40TA5 PO (15:48)
[2021-12-07] MEDS ORDERED: RIVA15TA PO (15:48)
[2021-12-07] MEDS ORDERED: MYRBETRIQ PO (15:48)
[2021-12-07] MEDS ORDERED: PRED10TA PO (15:48)
[2021-12-07] MEDS ORDERED: FERR325T27 PO (15:48)
[2021-12-07] MEDS ORDERED: OMEP1CAP25 PO (15:48)
--- NOTE | 2021-12-07 16:00 | NUR ---
BLOOD DRAWN AND SENT TO LAB
[2021-12-07 16:06] LABS: BASOPHILS # (AUTO) 0.1 K/uL (0.0-0.2); BASOPHILS % (AUTO) 0.5 % (0.0-2.0); EOSINOPHILS % (AUTO) 0.3 % (0.0-6.0); HEMATOCRIT 31 % (39-51); HEMOGLOBIN 10.2 g/dL (13.5-17.5); LYMPHOCYTES # (AUTO) 0.4 K/uL (0.8-4.8); LYMPHOCYTES % (AUTO) 3.1 % (20.0-44.0); MEAN CORPUSCULAR HGB CONC 33 g/dl (31.0-36.0); MEAN CORPUSCULAR VOLUME 88 fL (80-96); MONOCYTES # (AUTO) 0.7 K/uL (0.1-1.30); MONOCYTES % (AUTO) 5.2 % (2.0-12.0); NEUTROPHILS % (AUTO) 90.9 % (43.0-81.0); PLATELET COUNT (AUTO) 464 K/uL (150-450); RED BLOOD CELL COUNT(AUTO) 3.56 MIL/uL (4.5-6.0); WHITE BLOOD COUNT (AUTO) 14.3 K/uL (4.3-11.0)
[2021-12-07] MEDS ORDERED: MAG HYDROX/AL HYDROX/SIMETH 30 ML UDC PO PRN (16:30)
[2021-12-07] MEDS ORDERED: ACETAMINOPHEN 325 MG TABLET PO PRN (16:30)
[2021-12-07] MEDS ORDERED: MECLIZINE HCL 25 MG TABLET PO PRN (16:30)
[2021-12-07] MEDS ORDERED: MAGNESIUM HYDROXIDE 30 ML UDC PO PRN (16:30)
[2021-12-07] MEDS ORDERED: HYDROCODONE/APAP 5/325MG TABLET PO PRN (16:30)
[2021-12-07] MEDS ORDERED: ONDANSETRON HCL/PF 4 MG/2 ML VIAL IVP PRN (16:30)
[2021-12-07] MEDS ORDERED: ZOLPIDEM TARTRATE 5 MG TABLET PO PRN (16:30)
[2021-12-07] MEDS ORDERED: Z GUARD REMEDY 4 OZ OINT TP PRN (16:30)
[2021-12-07] MEDS ORDERED: DOCUSATE SODIUM 100 MG CAPSULE PO PRN (16:30)
[2021-12-07] MEDS ORDERED: clonazePAM 0.5 MG TABLET PO PRN (16:30)
[2021-12-07 16:48] LABS: CALCIUM, SERUM 8.4 mg/dL (8.5-10.1); CARBON DIOXIDE 29 mmol/L (21-32); CHLORIDE 103 mmol/L (98-107); CREATININE 1.4 mg/dL (0.6-1.3); GLUCOSE 120 mg/dL (74-106); POTASSIUM 4.5 mmol/L (3.5-5.1); SODIUM SERUM 140 mmol/L (136-145); UREA NITROGEN, BLOOD 29 mg/dL (7-18)
[2021-12-07] MEDS ORDERED: FERROUS SULFATE (325 MG) 325 MG/TAB TABLET ONE (17:19)
[2021-12-07] MEDS: FERROUS SULFATE (325 MG) 325 MG/TAB TABLET PO SCH (17:20)
[2021-12-07] MEDS: FLECAINIDE ACETATE (100 MG) 100 MG TABLET PO SCH (18:20)
--- NOTE | 2021-12-07 19:55 | NUR ---
REPORT GIVEN TO RN December-2
[2021-12-07] MEDS ORDERED: ALBUTEROL FS 2.5 MG/0.5 ML VIAL.NEB NEB PRN (20:00)
--- NOTE | 2021-12-07 20:22 | NUR ---
PATIENT ADMITTED TO [facility] FOR [facility]
--- NOTE | 2021-12-07 20:30 | NUR ---
PARKING METER SERVICERCIVIL ENGINEERING ASSISTANT NOTES [place] AMBULATORY W/ ASSIST. A/O X4. ABLE TO VERBALIZE NEEDS. ON O2 VIA NASAL CANULA AT 1 LPM. NO SOB OR NOTED. NO C/O PAIN OR DISCOMFORT. HAS LEFT ANTECUBITAL IV ACCESS #20G AND SALINE LOCKED. NO S/S OF INFILTRATION NOTED. MULTIPLE BRUISING AND BLE CELLULITIS NOTED. ALL BELONGINGS ACCOUNTED FOR. INSTRUCTED THAT HE CAN'T KEEP HIS HOME MEDS IN THE DRAWER, OFFERED TO KEEP IT IN THE PHARMACY. PT REFUSED AND VERBALIZED HE WILL HAVE A FAMILY MEMBER TAKE IT HOME. SAFETY PRECAUTIONS IN PLACE. WILL CONTINUE PLAN OF CARE.
[2021-12-07 21:00] VITALS: BP 136/71
[2021-12-07] MEDS: TAMSULOSIN 0.4 MG CAP.SR.24H PO SCH (22:12)
[2021-12-07] MEDS: DUTASTERIDE (0.5 MG) 0.5 MG CAPSULE PO SCH (22:12)
[2021-12-08] VITALS: BP 140/86
--- NOTE | 2021-12-08 03:45 | NUR ---
COMMUNITY ADMINISTRATOR NOTES PT C/O . SOB WHILE LYING FLAT NOTED. INCREASED O2 AT 3 LPM. SATURATING AT 95%-97%. INSTRUCTED TO KEEP HOB ELEVATED AT 45 DEGREES WHILE LYING DOWN. EDUCATED ON DEEP BREATHING TECHNIQUE. NOTIFIED RT, PRN ALBUTEROL GIVEN.
[2021-12-08 04:00] VITALS: BP 153/68
--- NOTE | 2021-12-08 06:17 | NUR ---
BAG FILLER MACHINE OPERATOR CLOSING NOTES PT LYING IN BED AWAKE. HOB ELEVATED AT 30 DEGREES. A/O X4. ON O2 VIA NASAL CANULA AT 2 LPM. BREATHING EVEN AND NON-LABORED. NO C/O PAIN OR DISCOMFORT AT THIS TIME. ON TELE MONITOR READING SINUS RHYTHM WITH BBB AT 86 BPM. HAS LEFT ANTECUBITAL IV ACCESS #20G AND SALINE LOCKED. PATENT, INTACT AND FLUSHING. SKIN ASSESSMENT DONE AND PHOTOS TAKEN. WOUND CARE RENDERED. KEPT DRY AND COMFORTABLE. ALL NEEDS ATTENDED. SAFETY PRECAUTIONS IN PLACE: BED LOW AND LOCKED, SIDE RAILS UP X2, CALL LIGHT WITHIN REACH.
[2021-12-08 06:35] LABS: BASOPHILS # (AUTO) 0.1 K/uL (0.0-0.2); BASOPHILS % (AUTO) 0.6 % (0.0-2.0); EOSINOPHILS % (AUTO) 1.4 % (0.0-6.0); HEMATOCRIT 31 % (39-51); HEMOGLOBIN 10.4 g/dL (13.5-17.5); LYMPHOCYTES % (AUTO) 8.7 % (20.0-44.0); MEAN CORPUSCULAR HGB CONC 33 g/dl (31.0-36.0); MEAN CORPUSCULAR VOLUME 89 fL (80-96); MONOCYTES # (AUTO) 1.3 K/uL (0.1-1.30); MONOCYTES % (AUTO) 11.4 % (2.0-12.0); NEUTROPHILS % (AUTO) 77.9 % (43.0-81.0); PLATELET COUNT (AUTO) 463 K/uL (150-450); RED BLOOD CELL COUNT(AUTO) 3.52 MIL/uL (4.5-6.0); WHITE BLOOD COUNT (AUTO) 11.5 K/uL (4.3-11.0)
--- NOTE | 2021-12-08 07:30 | NUR ---
AUTOMOTIVE MECHANIC OPENING NOTES RECEIVED PATIENT ON BED AWAKE AND A/O X4. ON O2 AT 2LPM VIA NASAL CANNULA SATURATING WELL. NO SOB NOTED. NOT IN DISTRESS. WITH COMPLAINTS OF TOLERABLE PAIN ON BOTH LEGS. COMFORT MEASURES PROVIDED. WITH IV ACCESS AT THE LEFT AC G20, Addendum: 12/08/21 at 1753 by SCARLET RAMOS RN ERROR
--- NOTE | 2021-12-08 07:30 | NUR ---
TYPE MAPPER OPENING NOTES RECEIVED PATIENT ON BED AWAKE AND A/O X4. ON O2 AT 2LPM VIA NASAL CANNULA SATURATING WELL. NO SOB NOTED. NOT IN DISTRESS. WITH COMPLAINTS OF TOLERABLE PAIN ON BOTH LEGS. COMFORT MEASURES PROVIDED. ON TELE MONITOR CURRENTLY READING SINUS RHYTHM WITH BBB AT 86BPM. WITH IV ACCESS AT THE LEFT AC G20, SALINE LOCKED, PATENT AND INTACT. SAFETY MEASURES IN PLACED. CALL LIGHT WITHIN REACH. BED ON LOWEST LOCKED POSITION, SIDE RAILS UP X2. WILL CONTINUE TO MONITOR.
[2021-12-08 07:41] LABS: CHLORIDE 106 mmol/L (98-107); CREATININE 1.3 mg/dL (0.6-1.3); GLUCOSE 100 mg/dL (74-106); PHOSPHORUS 3.4 mg/dL (2.5-4.9); POTASSIUM 4.1 mmol/L (3.5-5.1); SODIUM SERUM 142 mmol/L (136-145); UREA NITROGEN, BLOOD 26 mg/dL (7-18)
[2021-12-08 07:51] LABS: THYROID STIMULATING HORMONE 0.387 uIU/mL (0.358-3.74)
[2021-12-08 08:48] LABS: CALCIUM, SERUM 8.6 mg/dL (8.5-10.1); CARBON DIOXIDE 30 mmol/L (21-32); MAGNESIUM 2.2 mg/dL (1.8-2.4)
[2021-12-08] MEDS ORDERED: CEFTRIAXONE 1 G in IV D5W 50 ML IV SCH (09:00)
[2021-12-08] MEDS ORDERED: predniSONE 10 MG TABLET PO SCH (09:00)
[2021-12-08] MEDS ORDERED: Medication Not On Formulary EA ([Myrbetriq] 50 MG) PO SCH (09:00)
[2021-12-08] MEDS ORDERED: FUROSEMIDE 40 MG TABLET PO SCH (09:00)
[2021-12-08] MEDS ORDERED: ALBUTEROL FS 2.5 MG/0.5 ML VIAL.NEB NEB PRN (09:30)
[2021-12-08] MEDS: PANTOPRAZOLE 40 MG TABLET.DR PO SCH (09:30)
[2021-12-08] MEDS: FERROUS SULFATE (325 MG) 325 MG/TAB TABLET PO SCH ×2 (09:30→16:31)
[2021-12-08] MEDS ORDERED: IPRATROPIUM NEB FS 0.5 MG/2.5 ML AMPUL.NEB NEB PRN (09:30)
[2021-12-08] MEDS: BENAZEPRIL HCL 10 MG TABLET PO SCH (09:31)
[2021-12-08] MEDS: FLECAINIDE ACETATE (100 MG) 100 MG TABLET PO SCH ×2 (09:31→16:31)
[2021-12-08] MEDS: predniSONE 5 MG TABLET PO SCH (09:32)
[2021-12-08] MEDS: AMLODIPINE BESYLATE 5 MG TABLET PO SCH (09:32)
[2021-12-08] MEDS: CEFTRIAXONE 2 G in IV D5W 100 ML IV SCH (09:33)
--- NOTE | 2021-12-08 09:45 | NUR ---
WOUND CARE CONSULT: PT PRESENTS WITH SKIN TEAR TO RT UPPER ARM WITH DISCOLORATION AND SWELLING, RAISED AREA TO RT SIDE OF HEAD, LARGE RAISED AREA TO RT LOWER LEG WITH DISCOLORATION. RECOMMENDATIONS MADE FOR WOUND CARE AND SKIN PROTECTION. DISCUSSED WITH NURSING STAFF. SURGICAL AND DPM CONSULTS CALLED TO DR ROY AND DR BELCZYK. SCOTT IN AGREEMENT WITH PLAN OF CARE. Addendum: 12/08/21 at 0946 by DOROTHEA CHADWICK WNDNU Amended: Links added.
--- NOTE | 2021-12-08 18:59 | NUR ---
SECONDS INSPECTOR CLOSING NOTES PATIENT ON BED AWAKE AND A/O X4. ON O2 AT 2LPM VIA NASAL CANNULA SATURATING WELL. NO SOB NOTED. NOT IN DISTRESS. WITH COMPLAINTS OF TOLERABLE PAIN ON BOTH LEGS. COMFORT MEASURES PROVIDED. ON TELE MONITOR CURRENTLY READING SINUS RHYTHM WITH BBB AT 74BPM. WITH IV ACCESS AT THE LEFT AC G20, SALINE LOCKED, PATENT AND INTACT. DUE MEDS GIVEN. SAFETY MEASURES IN PLACED. CALL LIGHT WITHIN REACH. BED ON LOWEST LOCKED POSITION, SIDE RAILS UP X2. WILL ENDORSE TO NEXT SHIFT FOR YOUSUF.
--- NOTE | 2021-12-08 19:30 | NUR ---
RN OPENING NOTES RECEIVED PT IN BED, ASLEEP, AWAKENS TO VERBAL STIMULI. AOx4, ABLE TO MAKE NEEDS KNOWN. ON NC 2LPM AND TOLERATING WELL. NO SOB NOTED. NO S/SX OF RESPIRATORY DISTRESS NOTED. TELE MONITOR DETECTS SINUS RHYTHM WITH BBB AND 1ST DEGREE AV BLOCK WITH RATE OF 70. IV ACCESS IN LAC #20G. IV IS INTACT, PATENT, AND FLUSHING WELL. SAFETY PRECAUTIONS IN PLACE: BED IN LOWEST, LOCKED POSITION, SIDERAILS UPx2, AND BRAKES ON. TABLE AND CALL LIGHT WITHIN REACH. WILL CONTINUE TO MONITOR.
[2021-12-08 20:00] VITALS: BP 152/62
[2021-12-08] MEDS: DUTASTERIDE (0.5 MG) 0.5 MG CAPSULE PO SCH (21:24)
[2021-12-08] MEDS: TAMSULOSIN 0.4 MG CAP.SR.24H PO SCH (21:24)
[2021-12-09] VITALS: BP 132/51
[2021-12-09 04:00] VITALS: BP 140/59
[2021-12-09 06:28] LABS: BASOPHILS % (AUTO) 0.3 % (0.0-2.0); EOSINOPHILS % (AUTO) 1.6 % (0.0-6.0); HEMATOCRIT 30 % (39-51); HEMOGLOBIN 9.9 g/dL (13.5-17.5); LYMPHOCYTES # (AUTO) 0.9 K/uL (0.8-4.8); LYMPHOCYTES % (AUTO) 5.8 % (20.0-44.0); MEAN CORPUSCULAR HGB CONC 33 g/dl (31.0-36.0); MEAN CORPUSCULAR VOLUME 90 fL (80-96); MONOCYTES # (AUTO) 1.3 K/uL (0.1-1.30); NEUTROPHILS # (AUTO) 12.3 K/uL (1.8-8.9); NEUTROPHILS % (AUTO) 83.3 % (43.0-81.0); PLATELET COUNT (AUTO) 480 K/uL (150-450); RED BLOOD CELL COUNT(AUTO) 3.37 MIL/uL (4.5-6.0); WHITE BLOOD COUNT (AUTO) 14.8 K/uL (4.3-11.0)
--- NOTE | 2021-12-09 06:51 | NUR ---
RN CLOSING NOTES PT IN BED, AWAKE. AOx4, ABLE TO MAKE NEEDS KNOWN. ON NC 2LPM AND TOLERATING WELL. NO SOB NOTED. NO S/SX OF RESPIRATORY DISTRESS NOTED. TELE MONITOR DETECTS SINUS RHYTHM WITH BBB AND 1ST DEGREE AV BLOCK WITH RATE OF 70. IV ACCESS IN LAC #20G. IV IS INTACT, PATENT, AND FLUSHING WELL. PT KEPT NPO POST MIDNIGHT. ALL ORDERS CARRIED OUT. ALL NEEDS MET. PT KEPT CLEAN AND DRY. SAFETY PRECAUTIONS IN PLACE: BED IN LOWEST, LOCKED POSITION, SIDERAILS UPx2, AND BRAKES ON. TABLE AND CALL LIGHT WITHIN REACH. WILL ENDORSE TO ONCOMING SHIFT FOR YOUSUF.
[2021-12-09 06:54] LABS: CALCIUM, SERUM 8.3 mg/dL (8.5-10.1); CARBON DIOXIDE 31 mmol/L (21-32); CHLORIDE 105 mmol/L (98-107); CREATININE 1.3 mg/dL (0.6-1.3); GLUCOSE 95 mg/dL (74-106); PHOSPHORUS 3.4 mg/dL (2.5-4.9); POTASSIUM 4.1 mmol/L (3.5-5.1); SODIUM SERUM 140 mmol/L (136-145); UREA NITROGEN, BLOOD 26 mg/dL (7-18)
[2021-12-09] MEDS: PANTOPRAZOLE 40 MG TABLET.DR PO SCH (07:30)
[2021-12-09] MEDS ORDERED: ANESTHESIA TRAY IN PYXIS 1 EA TRAY MC ONE (07:52)
--- NOTE | 2021-12-09 08:00 | NUR ---
RN PATRICE BALL, CHARGE NURSE, AT BEDSIDE ABLE TO TRANSLATE NIGERIAN FOR PATIENT. CONSENT FORMS SIGNED BY PATIENT AND PLACED IN THE CHART.
[2021-12-09] MEDS ORDERED: FENTANYL PF 250MCG/5ML AMPUL ONE (08:01)
[2021-12-09] MEDS ORDERED: methylPREDNISolone SOD SUCC 125 MG/2ML VIAL ONE (08:02)
[2021-12-09] MEDS ORDERED: MIDAZOLAM HCL 2 MG/2ML VIAL ONE (08:02)
[2021-12-09 08:03] VITALS: BP 134/56
[2021-12-09] MEDS: BENAZEPRIL HCL 10 MG TABLET PO SCH (08:03)
[2021-12-09] MEDS: FERROUS SULFATE (325 MG) 325 MG/TAB TABLET PO SCH ×2 (08:03→16:09)
[2021-12-09] MEDS: predniSONE 5 MG TABLET PO SCH (08:04)
[2021-12-09] MEDS ORDERED: LIDOCAINE 1% INJ 50 ML MDV IJ ONE (08:09)
[2021-12-09] MEDS ORDERED: VANCOMYCIN 1 GM VIAL ONE (08:11)
--- NOTE | 2021-12-09 08:15 | NUR ---
RN NOTES PATIENT TAKEN TO OR FOR SCHEDULED SURGERY VIA GURNEY, ACCOMPANIED BY 1 OR NURSE.
[2021-12-09] MEDS ORDERED: FAMOTIDINE/PF INJ 20 MG/2 ML VIAL IV ONE (08:16)
[2021-12-09] MEDS: AMLODIPINE BESYLATE 5 MG TABLET PO SCH (08:24)
[2021-12-09] MEDS: FLECAINIDE ACETATE (100 MG) 100 MG TABLET PO SCH ×2 (08:24→16:09)
[2021-12-09] MEDS ORDERED: MYRBETRIQ PO SCH (09:00)
--- NOTE | 2021-12-09 10:30 | NUR ---
RN NOTES PATIENT RETURNED FROM SURGERY VIA GURNEY, ACCOMPANIED BY 1 OR NURSE. POST-OP ORDERS NOTED. RECEIVED SOLU-MEDROL AND ROCEPHIN AT OR. PATIENT AWAKE AND VERBALLY RESPONSIVE.
[2021-12-09] MEDS: CEFTRIAXONE 2 G in IV D5W 100 ML IV SCH (10:39)
[2021-12-09] MEDS ORDERED: CEPH500C2 PO (10:54)
--- NOTE | 2021-12-09 11:35 | NUR ---
RN NOTES UNABLE TO TAKE PHOTO OF RLE HEMATOMA SITE IS S/P SURGERY TODAY. DRESSING C/D/I.
--- NOTE | 2021-12-09 17:06 | NUR ---
RN NOTES PHOTOS OF SKIN ISSUES TAKEN AND PLACED IN THE CHART. UNABLE TO TAKE PHOTO OF FERN SKIN TEAR PATIENT IS COMPLAINING OF PAIN WHEN THE DRESSING IS BEING REMOVED. DRESSING KEPT INTACT. SEEN EARLIER BY DR. RUIZ W/ ORDER FOR DISCHARGE TO HOME. SHIRA, AOC DIRECTOR INTELLIGENCE OFFICER, MADE AWARE FOR TRANSPORTATION.
--- NOTE | 2021-12-09 19:15 | NUR ---
RN DC NOTE PATIENT BEING DC'D TO HOME VIA EMS TRANSPORT. AL EXIT CARE AND EDUCATION PROVIDED. VSS. IV ACCESS REMOVED. ALL BELONGINGS GIVEN BACK TO PATIENT. PATIENT STABLE FOR TRANSPORT.
== END 2021-12-09 19:15 | disposition home or self-care (01) | DRG 85 ==
LOC: ER 13:55 → TELE 19:32 → MED 12-09 09:59
PROVIDERS: ADMIT Student in an Organized Health Care Education/Training Program; ATTEND Student in an Organized Health Care Education/Training Program
PROC: 0Y9H0ZZ Drainage of Right Lower Leg, Open Approach (ICD-10-PCS; principal; 2021-12-09)
DX: S06.5X0A Traumatic subdural hemorrhage without loss of consciousness, initial encounter (principal); N17.0 Acute kidney failure with tubular necrosis; L03.116 Cellulitis of left lower limb; L03.115 Cellulitis of right lower limb; D68.59 Other primary thrombophilia; W19.XXXA Unspecified fall, initial encounter; Y93.9 Activity, unspecified; I48.91 Unspecified atrial fibrillation; D64.9 Anemia, unspecified; D75.839 Thrombocytosis, unspecified; E78.5 Hyperlipidemia, unspecified; F41.9 Anxiety disorder, unspecified; I11.0 Hypertensive heart disease with heart failure; I50.9 Heart failure, unspecified; J44.9 Chronic obstructive pulmonary disease, unspecified; Z79.01 Long term (current) use of anticoagulants; N40.0 Benign prostatic hyperplasia without lower urinary tract symptoms; K21.9 Gastro-esophageal reflux disease without esophagitis; F32.A Depression, unspecified; Z85.46 Personal history of malignant neoplasm of prostate; Z87.891 Personal history of nicotine dependence; Z92.3 Personal history of irradiation; I89.0 Lymphedema, not elsewhere classified; R40.2362 Coma scale, best motor response, obeys commands, at arrival to emergency department; R40.2142 Coma scale, eyes open, spontaneous, at arrival to emergency department; R40.2252 Coma scale, best verbal response, oriented, at arrival to emergency department; Y92.009 Unspecified place in unspecified non-institutional (private) residence as the place of occurrence of the external cause; I25.10 Atherosclerotic heart disease of native coronary artery without angina pectoris; D72.829 Elevated white blood cell count, unspecified; S80.11XA Contusion of right lower leg, initial encounter; S41.111A Laceration without foreign body of right upper arm, initial encounter; Z20.822 Contact with and (suspected) exposure to COVID-19
CPT/HCPCS: 36415; 70450-TC; 71045-TC; 72125-TC; 73060-TC; 73090-TC; 73502; 73700-TC; 80048-TC; 83735-TC; 84100-TC; 84443-TC; 85025-TC; 85730-TC; 87070-TC; 87081-TC; 87186-TC; 94799-TC; 97116-TC; 97530-TC; A4217; A6253; A6403; A6407; C9803; G0378; J0690; J0696; J2250; J2405; J2704; J2765; J2930; J3010; J3370; J3490; J7030; J7050; J7060; J7512

== ENCOUNTER 2021-12-16 13:51 | Emergency (ER) | payer MEDICARE, OTHER ==
[~2021-12-16] VITALS: Ht 175.3 cm; Wt 88.5 kg
[~2021-12-16 13:51] MED LIST changes: -ALBU4TAB6 PO; -AZIT250T13 PO; +CEPH500C2 PO; -CLON0.5T4 PO; -CYCL30DR EACHEYE; +DOCU-141 PO; +FERR325T27 PO; -FLUT12AE3 IH; +FURO40TA5 PO; -GABA-534 PO; -GUAI-755 PO; -MONT10TA22 PO; +MYRBETRIQ PO; +OMEP1CAP25 PO; +PRED10TA PO; -PRED20TA PO; -RIVA10TA PO; -TIOT18CA3 IH; -TRAM50TA2 PO
--- NOTE | 2021-12-16 14:30 | NUR ---
Family at bedside aware of plan of care
--- NOTE | 2021-12-16 16:00 | NUR ---
Status quo- reclining in bed NO obvious distress
[2021-12-16 16:46] VITALS: BP 100/50
--- NOTE | 2021-12-16 16:56 | NUR ---
Patient discharged to home in stable condition. Written and verbal after care instructions given. Patient verbalizes understanding of instruction.
== END 2021-12-16 16:57 | disposition home or self-care (01) ==
LOC: ER 13:57
DX: J18.9 Pneumonia, unspecified organism (principal); G47.34 Idiopathic sleep related nonobstructive alveolar hypoventilation; Z20.822 Contact with and (suspected) exposure to COVID-19; Z82.49 Family history of ischemic heart disease and other diseases of the circulatory system; E78.5 Hyperlipidemia, unspecified; K21.9 Gastro-esophageal reflux disease without esophagitis; I25.10 Atherosclerotic heart disease of native coronary artery without angina pectoris; J44.9 Chronic obstructive pulmonary disease, unspecified; I50.9 Heart failure, unspecified; Z79.899 Other long term (current) drug therapy; Z85.9 Personal history of malignant neoplasm, unspecified; Z92.3 Personal history of irradiation
CPT/HCPCS: 71045-TC; C9803

== ENCOUNTER 2021-12-17 11:00 | Outpatient (CLI) | payer MEDICARE, OTHER ==
[2021-12-17] MEDS ORDERED: LIDOCAINE SOLN 4% 50 ML BOTTLE ONE (11:40)
== END 2021-12-17 23:59 | disposition home health service (06) ==
LOC: WOU 11:00
PROVIDERS: ATTEND Podiatrist Foot & Ankle Surgery
DX: T81.89XA Other complications of procedures, not elsewhere classified, initial encounter (principal); L03.115 Cellulitis of right lower limb; I87.2 Venous insufficiency (chronic) (peripheral); R60.0 Localized edema; I10 Essential (primary) hypertension; Z79.01 Long term (current) use of anticoagulants
CPT/HCPCS: 11042; 87070; 87075; 87077; 87186; A6407

== ENCOUNTER → 2021-12-24 | Outpatient (CLI) | payer MEDICARE, OTHER | END | disposition home health service (06) | LOC: WOU 10:50 | PROVIDERS: ATTEND Podiatrist Foot & Ankle Surgery | DX: L97.212 Non-pressure chronic ulcer of right calf with fat layer exposed (principal); T81.31XS Disruption of external operation (surgical) wound, not elsewhere classified, sequela; I87.2 Venous insufficiency (chronic) (peripheral); L03.115 Cellulitis of right lower limb; R60.0 Localized edema | CPT/HCPCS: 11042; A6407 ==

== ENCOUNTER 2021-12-31 11:10 | Outpatient (CLI) | payer MEDICARE, OTHER | END 2021-12-31 23:59 | disposition home health service (06) | LOC: WOU 11:10 | PROVIDERS: ATTEND Podiatrist Foot & Ankle Surgery | DX: L97.212 Non-pressure chronic ulcer of right calf with fat layer exposed (principal); T81.89XS Other complications of procedures, not elsewhere classified, sequela; I87.2 Venous insufficiency (chronic) (peripheral); R60.0 Localized edema; I10 Essential (primary) hypertension; T81.31XS Disruption of external operation (surgical) wound, not elsewhere classified, sequela | CPT/HCPCS: 87070; 87075; A6407; G0463 ==

== ENCOUNTER 2022-01-05 13:00 | Outpatient (CLI) | payer MEDICARE, OTHER | END 2022-01-05 23:59 | disposition home health service (06) | LOC: WOU 13:00 | PROVIDERS: ATTEND Podiatrist Foot & Ankle Surgery | DX: T81.89XA Other complications of procedures, not elsewhere classified, initial encounter (principal); L03.115 Cellulitis of right lower limb; I87.2 Venous insufficiency (chronic) (peripheral); L97.212 Non-pressure chronic ulcer of right calf with fat layer exposed; R60.0 Localized edema | CPT/HCPCS: 11042; A6407 ==

== ENCOUNTER 2022-01-11 11:00 | Outpatient (CLI) | payer MEDICARE, OTHER | END 2022-01-11 23:59 | disposition home health service (06) | LOC: WOU 11:00 | PROVIDERS: ATTEND Podiatrist Foot & Ankle Surgery | DX: I87.2 Venous insufficiency (chronic) (peripheral) (principal); L97.212 Non-pressure chronic ulcer of right calf with fat layer exposed; L03.115 Cellulitis of right lower limb; R60.0 Localized edema; I10 Essential (primary) hypertension; Z79.01 Long term (current) use of anticoagulants | CPT/HCPCS: 11042; A6407 ==

== ENCOUNTER 2022-01-11 11:19 | Outpatient (CLI) | payer MEDICARE, OTHER | END 2022-01-11 23:59 | disposition home or self-care (01) | LOC: LAB 11:19 | PROVIDERS: ATTEND Podiatrist Foot & Ankle Surgery | DX: Z01.812 Encounter for preprocedural laboratory examination (principal); Z20.822 Contact with and (suspected) exposure to COVID-19 | CPT/HCPCS: C9803; U0003 ==

== ENCOUNTER 2022-01-18 06:04 | Day surgery (SDC) | payer MEDICARE, OTHER ==
[~2022-01-18] VITALS: Ht 175.3 cm; Wt 76.2 kg
[2022-01-18] MEDS ORDERED: MIDAZOLAM HCL 2 MG/2ML VIAL ONE (06:38)
[2022-01-18] MEDS ORDERED: FENTANYL PF 250MCG/5ML AMPUL ONE (06:38)
[2022-01-18] MEDS ORDERED: FAMOTIDINE/PF INJ 20 MG/2 ML VIAL IV ONE (06:39)
[2022-01-18] MEDS ORDERED: methylPREDNISolone SOD SUCC 125 MG/2ML VIAL ONE (06:39)
--- NOTE | 2022-01-18 06:55 | NUR ---
RN ADMITTING NOTE PATIENT RECEIVED AT 0630, BEING ADMITTED FOR I&D WITH DR. VRIK AT 0730. PATIENT A/O X 3 SIGNED ALL CONSENTS NEEDED. IV ACCESS ON RFA 20 G PATENT AND INTACT. PATENT ON RA, TOLERATING WELL NOT IN ANY APPARENT DISTRESS. R LOWER EXT WOUND WRAPPED IN DRY DSG, FOR SX. SAFETY MEASURES IMPLEMENTED. PATIENT TAKEN TO OR AT THIS TIME. WILL ENDORSE TO DAY SHIFT NURSE FOR YOUSUF.
[2022-01-18] MEDS ORDERED: VANCOMYCIN 1 GM VIAL ONE (06:56)
[2022-01-18] MEDS ORDERED: BUPIVACAINE 0.25% 75 MG/30 ML VIAL ONE (06:56)
[2022-01-18] MEDS ORDERED: LIDOCAINE 1% INJ 50 ML MDV IJ ONE (06:56)
--- NOTE | 2022-01-18 07:30 | NUR ---
DS/MS NURSING OPENING NOTES PATIENT IS CURRENTLY IN SURGERY. WILL CONTINUE TO MONITOR FOR YOUSUF.
--- NOTE | 2022-01-18 09:33 | NUR ---
MS NURSING NOTES RECEIVED PATIENT FROM ROSEY ADRIAN (OR NURSE), AND REPORT GIVEN BY MAGALY PATEL RN (OR). PATIENT IS A/O X 4, NAURUAN HIS SECOND LANGUAGE. EASILY AROUSABLE, AND VITALS IS WITHIN NORMAL LIMITS. RIGHT LEG IS WRAPPED WITH LIZBETH BANDAGE, C/D/I; NO S/S OF BLEEDING AND INFLAMMATION AROUND THE INSERTION. PATIENT WILL DISCHARGE WHEN HE IS STABLE TO GO. WILL CONTINUE TO MONITOR FOR YOUSUF.
--- NOTE | 2022-01-18 14:00 | NUR ---
MS NURSING DISCHARGE NOTES PATIENT IS BEING DISCHARGE FOR S/P I&D RLE. PATIENT IS ALERT, ORIENTED X 4, AND ABLE TO COMMUNICATE HIS NEEDS. PATIENT IS CURRENTLY IN ROOM AIR, AND ABLE TO TOLERATE WELL. VITALS IS WITHIN NORMAL LIMITS. RIGHT LEG IS WRAPPED WITH LIZBETH BANDAGE, C/D/I; NO S/S OF BLEEDING AND INFLAMMATION AROUND THE INSERTION. IV IN RIGHT FOREARM DISCONNECTED, NO INFILTRATION AND INFLAMMATION. DISCHARGE PACKET AND BELONGING LIST SIGNED. PATIENT IS STABLE TO GO HOME. PATIENT IS WALKED TO HIS CAR BY DAVID TAVARES.
== END 2022-01-18 19:00 | disposition home or self-care (01) ==
LOC: DS 06:04 → MED 06:06 → UNDOADMIN 06:06 → UNDODISIN 14:00 → DS 19:00
PROVIDERS: ATTEND Podiatrist Foot & Ankle Surgery
DX: E11.621 Type 2 diabetes mellitus with foot ulcer (principal); L97.518 Non-pressure chronic ulcer of other part of right foot with other specified severity; J44.9 Chronic obstructive pulmonary disease, unspecified; G47.33 Obstructive sleep apnea (adult) (pediatric); Z99.89 Dependence on other enabling machines and devices; K21.9 Gastro-esophageal reflux disease without esophagitis; I10 Essential (primary) hypertension; Z98.890 Other specified postprocedural states; Z79.899 Other long term (current) drug therapy
CPT/HCPCS: 13160; 87070 ×2; 87075 ×2; 87081; J0330; J0690; J1100; J2250; J2405; J2704; J2765; J2930; J3010; J3490 ×4; J7030; G0378; J3370

== ENCOUNTER 2022-01-21 11:00 | Outpatient (CLI) | payer MEDICARE, OTHER ==
[2022-01-21] MEDS ORDERED: UREA 10% -AHA 4% CREAM 57 GM TUBE ONE (11:22)
== END 2022-01-21 23:59 | disposition home health service (06) ==
LOC: WOU 11:00
PROVIDERS: ATTEND Podiatrist Foot & Ankle Surgery
DX: T81.89XD Other complications of procedures, not elsewhere classified, subsequent encounter (principal); I87.2 Venous insufficiency (chronic) (peripheral); R60.0 Localized edema
CPT/HCPCS: G0463; A6452

== ENCOUNTER → 2022-01-28 | Outpatient (CLI) | payer MEDICARE, OTHER | END | disposition home health service (06) | LOC: WOU 11:07 | PROVIDERS: ATTEND Podiatrist Foot & Ankle Surgery | DX: M72.2 Plantar fascial fibromatosis (principal); I87.2 Venous insufficiency (chronic) (peripheral); R60.0 Localized edema; M79.672 Pain in left foot; M79.671 Pain in right foot | CPT/HCPCS: G0463 ==

== ENCOUNTER 2022-02-11 10:44 | Outpatient (CLI) | payer MEDICARE, OTHER | END 2022-02-11 23:59 | disposition home health service (06) | LOC: WOU 10:44 | PROVIDERS: ATTEND Podiatrist Foot & Ankle Surgery | DX: I87.2 Venous insufficiency (chronic) (peripheral) (principal); R60.0 Localized edema; M79.671 Pain in right foot; B35.1 Tinea unguium | CPT/HCPCS: G0463 ==